=== PATIENT | female | born 1990 | race American Indian/Alaskan Native ===

== ENCOUNTER 2018-05-20 23:40 | Emergency (ER) | payer OTHER, SELFPAY ==
[2018-05-20 23:45] VITALS: BP 101/71; PULSE 72; RESP 18; TEMP 36.6; O2SAT 99; BMI 29.2
--- NOTE | 2018-05-20 23:46 | ED.GENADULT ---
HPI - General Adult General Chief complaint: Skin/Abscess/Foreign Body Stated complaint: numbness/tingling hands/feet on new antibiotics Time Seen by Provider: 05/20/18 23:46 Source: patient Mode of arrival: ambulatory Limitations: no limitations History of Present Illness HPI narrative: Patient is a 27-year-old female who had 4 teeth removed today under sedation. Was sent home with amoxicillin and oxycodone/acetaminophen and ibuprofen. She states that approximately 2 hr prior to arrival she was sitting on her couch when she noticed some tingling from her knees to her ankles circumferentially on bilateral legs and also tingling in her hands. She states that she has had panic attacks in the past but this does not feel like a prior panic attack. She states that she did breathing into a bag which did not seem to improve her symptoms. Her last dose of pain medication was approximately 5 hr prior to the onset of the symptoms. She has never taken amoxicillin before and she is concerned that this is a reaction to the amoxicillin. Related Data Home Medications Medication Instructions Recorded Confirmed amoxicillin 500 mg PO TID 05/21/18 05/21/18 oxycodone-acetaminophen [Percocet] 1 tab PO Q4-6H PRN 05/21/18 05/21/18 Allergies Allergy/AdvReac Type Severity Reaction Status Date / Time No Known Drug Allergies Allergy Verified 05/21/18 00:30 Review of Systems Constitutional Denies fever(s) Cardiovascular Denies chest pain and Denies dyspnea Respiratory Denies dyspnea Gastrointestinal Gastrointestinal: Denies abdominal pain, Denies nausea and Denies vomiting Musculoskeletal Reports tingling Integumentary/Breasts Denies lesions and Denies rash Neurologic Reports tingling Hematologic/Lymphatic Denies easy bleeding and Denies easy bruising [facility] Medical History Panic attack (Acute) Surgical History Status post delivery (06/10/11) Social History Smoking Status: Never smoker Exam Initial Vital Signs Initial Vital Signs: Vital Signs Temperature 98 F 05/20/18 23:45 Pulse Rate 72 05/20/18 23:45 Respiratory Rate 18 05/20/18 23:45 Blood Pressure 101/71 05/20/18 23:45 Pulse Oximetry 99 05/20/18 23:45 Const General: cooperative, healthy appearing, comfortable, well developed, well groomed and No acute distress Orientation: alert, awake and oriented x3 HENMT Head: normal to inspection and normocephalic Resp Effort & Inspection: normal respiratory effort Auscultation: clear to auscultation bilaterally Cardio Rate: regular rate Heart Sounds: no murmurs Skin Lesions: no lesions Rashes: no rashes Neuro General: alert and oriented x3 Cranial Nerves: CN's II-XI intact bilaterally Cognition: normal cognition Speech: speech normal Gait: normal gait Motor: muscle tone normal throughout Sensory Exam: no sensory deficits noted Extrem General: normal to inspection and capillary refill normal Psych Appearance: grossly normal and well kempt Course Vital Signs - 8 hr 05/20/18 23:45 Temperature 98 F Pulse Rate 72 Respiratory Rate 18 Blood Pressure 101/71 Pulse Oximetry 99 Medical Decision Making MDM Narrative Medical decision making narrative: Patient appears very well. Physical exam is not consistent with CVA/TIA. I doubt that this is an allergic reaction to any of the medicines that she is taking. I do suspect a anxiety component to this. I did discuss all this with the patient. Will hold on further workup for now. The computer system was down at the time of the patient's discharge. She was given verbal discharge instructions. She expressed understanding and agreement plan. Discharge Plan Departure Patient Disposition: Home Clinical Impression: Distal paresthesia Discharge Date/Time: 05/21/18 00:15 Interventions: ED Discharge Assessment Last Done: 05/21/18 00:34 Activity Restrictions/Additional Instructions: continue all of your medications as directed. Return to the emergency department for any new or worsening symptoms. Prescriptions: No Action oxycodone-acetaminophen [Percocet] 5-325 mg Tablet 1 tab PO Q4-6H PRN (Reason: Pain, Mild) RF: 0 amoxicillin 500 mg Capsule 500 mg PO TID RF: 0
--- NOTE | 2018-05-21 00:28 | PC.NURSE ---
She c/o tingling arms and legs,no rashes noted,lungs clear,no rash noted.good cms in arms and legs bilateral.
== END 2018-05-21 00:15 | disposition home or self-care (01) ==
PROVIDERS: Emergency Provider Emergency Medicine; Family Provider Physician Assistant; PCP Physician Assistant
DX: R20.2 Paresthesia of skin (principal)
CPT/HCPCS: 99282

== ENCOUNTER → 2019-07-02 15:12 | Outpatient (CLI) | payer OTHER, MEDICAID, SELFPAY ==
[2019-07-02 16:45] LABS: Follicle Stimulating Hormone 2.77 mIU/mL; Luteinizing Hormone 2.31 mIU/mL
[2019-07-02 16:48] LABS: Prolactin 16.8 ng/mL (3.0-18.6)
[2019-07-02 16:59] LABS: Thyroid Stimulating Hormone 0.77 uIU/mL (0.47-4.68)
[2019-07-07 13:59] LABS: Testosterone Total 28 ng/dL (2-45)
== END ==
PROVIDERS: PCP Physician Assistant
DX: N97.0 Female infertility associated with anovulation (principal)
CPT/HCPCS: 36415; 83001; 83002; 84146; 84402; 84403; 84443

== ENCOUNTER 2024-09-29 19:01 | Observation (INO) | payer OTHER, SELFPAY ==
[2024-09-29] VITALS (9 sets, daily range): BP systolic 102–127; BP diastolic 55–68; PULSE 63–84; RESP 16–21; TEMP 36.8; O2SAT 98–100; BMI 32.2
[2024-09-29 19:55] LABS: Bacteria Urine Occasional (0-1); Culture Indicated Urine Cult Not Indicated; RBC Urine None Seen (0-5/HPF); Squamous Epithelial Cell Urine None Seen (0-5/HPF); Urine Volume 10mL (spun); WBC Urine 0-1/HPF (0-5/HPF)
[2024-09-29 20:26] LABS: Add Manual Diff / Slide Review NO; Basophils Absolute Auto 100 /uL (0-100); Basophils Percent Auto 1.2 % (0-2); Eosinophils Absolute Auto 400 /uL (0-450); Eosinophils Percent Auto 3.5 % (2-4); Hematocrit 40.1 % (36-46); Hemoglobin 13.6 g/dL (12.0-16.0); Lymphocytes Absolute Auto 2800 /uL (1100-4500); Lymphocytes Percent Auto 24.2 % (25-40); Mean Corpuscular HGB Conc 33.8 % (30-36); Mean Corpuscular Hemoglobin 31.5 PG (26-34); Mean Corpuscular Volume 93.2 fL (80-100); Monocytes Absolute Auto 900 /uL (0-900); Monocytes Percent Auto 7.3 % (3-14); Neutrophils Absolute Auto 7400 /uL (1500-7000); Neutrophils Percent Auto 63.8 % (50-75); Platelet Count 440 X10^3/uL (150-400); Red Blood Cell Count 4.31 X10^6/uL (4.0-5.2); Red Cell Distribution Width 13.6 % (11.6-14.8); White Blood Cell Count 11.6 X10^3/uL (4.5-11.0)
[2024-09-29 20:52] LABS: Alanine Aminotransferase 36 IU/L (<35); Albumin 3.9 g/dL (3.5-5.0); Albumin Globulin Ratio 1.3 (1.0-2.8); Alkaline Phosphatase 92 U/L (38-126); Aspartate Aminotransferase 43 IU/L (14-36); BUN Creatinine Ratio 8.8 (6-22); Bilirubin Total 0.5 mg/dL (0.2-1.3); Blood Urea Nitrogen 6 mg/dL (7-17); Calcium 8.4 mg/dL (8.4-10.2); Carbon Dioxide 22 mmol/L (22-32); Chloride 108 mmol/L (98-107); Estimated Glomerular Filt Rate > 60 mL/min (>60); Globulin 3.1 g/dL (1.7-4.1); Glucose 102 mg/dL (70-100); HEMOLYSIS < 15 (0-50); Lipase 87 U/L (23-300); Potassium 3.8 mmol/L (3.4-5.1); Sodium 138 mmol/L (137-145)
[2024-09-29 21:08] LABS: HCG Quantitative /Beta subunit 331.95 mIU/mL
--- NOTE | 2024-09-29 21:09 | ED_ITS ---
HPI - General Chief complaint: Abdominal Pain Stated complaint: states bad uterine cramping Time Seen by Provider: 09/29/24 20:16 Source: patient, RN notes reviewed and old records reviewed Mode of arrival: Ambulatory Limitations: no limitations History of Present Illness HPI Narrative: 34-year-old female A1 complaint of lower abdominal pelvic cramping feels like her uterus starting earlier today had some spotting week ago Friday. She was Unsure of last menstrual cycle but states has had 1 in the last 2 months. States they are irregular. Has not had any additional vaginal bleeding. Denies fevers or chills. No chest pain or shortness of breath, no lightheadedness or passing out. Describes abdominal pelvic cramping that feels like her uterus. States normal bowel movements. Normal urination. Has had prior history of C- section x2. Patient states no daily medications. No other prior surgeries. No known drug allergies. No regular tobacco, alcohol or recreational drugs. Related Data Allergies Allergy/AdvReac Type Severity Reaction Status Date / Time No Known Drug Allergies Allergy Verified 07/02/19 14:47 Review of Systems Review of Systems ROS Unobtainable: All systems reviewed & are unremarkable except as noted in HPI and below Exam Narrative Exam Narrative: GENERAL: Alert and oriented x three, female in mild distress HEENT: Head normocephalic, atraumatic, EOMI, pupils reactive, face symmetric, moist mucous membranes NECK: Supple, full range of motion CARDIOVASCULAR: Regular rate and rhythm without murmurs, rubs or gallops. RESPIRATORY: Breath sounds equal bilaterally, no wheezes rales or rhonchi. ABDOMEN: Soft, positive suprapubic tenderness. Normoactive bowel sounds all 4 quadrants. No guarding or rebound, rigidity, no mass : No CVA tenderness EXTREMITIES: Normal range of motion, no clubbing or edema. Neurovascularly intact NEUROLOGICAL: Cranial nerves II through XII grossly intact. Moving all extremities SKIN: Warm, dry, no petechiae, no rashes or lesions. Initial Vital Signs Initial Vital Signs: Vital Signs Temperature 98.2 F 09/29/24 19:10 Pulse Rate 63 09/29/24 19:10 Respiratory Rate 18 09/29/24 19:10 Blood Pressure 127/64 09/29/24 19:10 Pulse Oximetry 98 09/29/24 19:10 Oxygen Delivery Method Room Air 09/29/24 19:10 Course Orders Ordered: ED Orders 09/29/24 19:20 Urine Microscopic Stat 09/29/24 20:12 ABO RH Type Stat Beta HCG, Quant [HCG Quantitative /Beta subunit] Stat Complete Blood Count AUTO DIFF Stat Comprehensive Metabolic Panel Stat Lipase Stat 09/29/24 21:29 US pelvic complete Stat 09/29/24 23:21 Type and Screen Stat Discontinued Medications Hydrocodone Bitart/Acetaminophen (Hydrocodone/Acet 5/325 Tablet) 1 tab PO NOW ONE Stop: 09/29/24 21:31 Last Admin: 09/29/24 21:37 Dose: 1 tab Documented By: Sodium Chloride (Normal Saline 0.9%) 1,000 mls @ 1,000 mls/hr IV BOLUS ONE Stop: 09/29/24 22:29 Last Infusion: 09/29/24 22:37 Dose: Infused Documented By: Admin: 09/29/24 21:45 Dose: 1,000 mls/hr Documented By: Ondansetron HCl (Ondansetron 4 Mg/2 Ml Inj) 4 mg IV NOW PRN PRN Reason: Nausea And Vomiting Ondansetron HCl (Ondansetron 4 Mg Odt) 4 mg PO NOW PRN PRN Reason: Nausea And Vomiting Vital Signs Vital signs: Vital Signs - 8 hr 09/29/24 19:10 09/29/24 20:30 09/29/24 21:00 Temperature 98.2 F Pulse Rate 63 78 76 Respiratory Rate 18 20 18 Blood Pressure 127/64 Pulse Oximetry 98 100 99 Oxygen Delivery Method Room Air 09/29/24 21:16 09/29/24 21:16 09/29/24 21:30 Temperature Pulse Rate 68 Respiratory Rate 20 Blood Pressure 106/57 L 113/59 L Pulse Oximetry 99 Oxygen Delivery Method 09/29/24 21:30 09/29/24 22:00 09/29/24 22:00 Temperature Pulse Rate 84 78 Respiratory Rate 18 16 Blood Pressure 116/68 Pulse Oximetry 100 100 Oxygen Delivery Method 09/29/24 22:30 09/29/24 22:30 09/29/24 23:00 Temperature Pulse Rate 68 Respiratory Rate 18 Blood Pressure 106/55 L 110/59 L Pulse Oximetry 100 Oxygen Delivery Method 09/29/24 23:00 Temperature Pulse Rate 68 Respiratory Rate 18 Blood Pressure Pulse Oximetry 99 Oxygen Delivery Method [facility]/Uterine Contractions Lab Data 09/29/24 20:12 09/29/24 20:12 Labs: Lab Results 09/29/24 09/29/24 Range/Units 19:20 20:12 WBC 11.6 H (4.5-11.0) X10^3/uL RBC 4.31 (4.0-5.2) X10^6/uL Hgb 13.6 (12.0-16.0) g/dL Hct 40.1 (36-46) % MCV 93.2 (80-100) fL MCH 31.5 (26-34) PG MCHC 33.8 (30-36) % RDW 13.6 (11.6-14.8) % Plt Count 440 H (150-400) X10^3/uL Neut % (Auto) 63.8 (50-75) % Lymph % (Auto) 24.2 L (25-40) % [place] % (Auto) 7.3 (3-14) % Eos % (Auto) 3.5 (2-4) % Baso % (Auto) 1.2 (0-2) % Neut # (Auto) 7400 H (0020-1836) /uL Lymph # (Auto) 2800 (1832-2538) /uL [place] # (Auto) 900 (0-900) /uL Eos # (Auto) 400 (0-450) /uL Baso # (Auto) 100 (0-100) /uL Sodium 138 (137-145) mmol/L Potassium 3.8 (3.4-5.1) mmol/L Chloride 108 H (98-107) mmol/L Carbon Dioxide 22 (22-32) mmol/L BUN 6 L (7-17) mg/dL Creatinine 0.68 (0.52-1.04) mg/dL Estimated GFR > 60 (>60) mL/min BUN/Creatinine Ratio 8.8 (6-22) Glucose 102 H (70-100) mg/dL Calcium 8.4 (8.4-10.2) mg/dL Total Bilirubin 0.5 (0.2-1.3) mg/dL AST 43 H (14-36) IU/L ALT 36 H (<35) IU/L Alkaline Phosphatase 92 (38-126) U/L Total Protein 7.0 (6.3-8.2) g/dL Albumin 3.9 (3.5-5.0) g/dL Globulin 3.1 (1.7-4.1) g/dL Albumin/Globulin Ratio 1.3 (1.0-2.8) Lipase 87 (23-300) U/L HCG, Quant 331.95 mIU/mL Urine RBC None seen (0-5/HPF) Urine WBC 0-1/hpf (0-5/HPF) Ur Squamous Epith Cells None seen (0-5/HPF) Urine Bacteria Occasional (0-1) (None) Ur Culture Indicated? Cult not indicated Vol Urine Centrifuged 10ml (spun) Blood Type O Positive Point of Care Testing Test Results Positive Urine Dip Bedside Urine Glucose Negative Bedside Urine Bilirubin - Negative Bedside Urine Ketone - Negative Urine Specific [place] 1.020 Bedside Urine Occult Blood + Bedside Urine pH 6 Bedside Urine Protein - Negative Bedside Urine Urobilinogen - Negative Bedside Urine Nitrite - Negative Bedside Urine Leukocytes - Negative Esterase MDM Narrative Medical decision making narrative: Labs show white count 11.6 hemoglobin of 13 platelets of 440. Chloride 108 sodium is 138 potassium 3.8 CO2 is 22 with a BUN 6 creatinine 0.68 glucose of 102 AST is 43 ALT is 36 LFTs are otherwise appropriate hCG quant is 331.95. Patient is A positive, documented is O-positive this evening in the EMR but labs called was inappropriately documented was rerun on a new tube of blood but are unable to change in the EMR tonight. Point of care urine . Point of care positive for blood negative for nitrates and leuks. No RBCs 1 white cell no squamous occasional bacteria. OB ultrasound, endometrium poorly visualized left adnexal non vesicular complex cystic structure visualized possible cyst however ectopic can not be excluded proximally 40 cc he voids cul-de-sac possibly hemorrhagic contents. Results called to myself by Radiology 232 consult paradichlorobenzene tender, Dr. Rojas concern for ectopic patient does have up 40 cc of hemorrhagic contents suspected blood she will be in to see the patient shortly. Updated patient of findings. Dr. Rojas saw patient in the department and go to the OR for ex-lap to r/o ectopic. Discharge Plan Departure Patient Disposition: Admitted as Observation Clinical Impression: Ectopic Admit Date/Time: 09/29/24 23:42 Admit Provider: Krystina Rojas
--- NOTE | 2024-09-29 21:29 | DI.US.S_ITS ---
PROCEDURE: US PELVIC COMPLETE INDICATIONS: POSITIVE PREG; UNSURE DATES; CRAMPING TECHNIQUE: Real-time scanning was performed of the pelvic organs, with image documentation. Additional endovaginal scanning was necessary due to incomplete visualization of the adnexal and endometrial structures by transabdominal scanning. COMPARISON: None. FINDINGS: Uterus: Uterus is anteverted and normal in size at 9.5 x 4.9 x 5.5 cm cm. The myometrium is homogeneous. The endometrium is poorly visualized and measures approximately 9.5 mm in thickness. No definite intrauterine gestation identified. Ovaries: The right ovary measures 1.2 x 1.0 x 0.9 cm, with a calculated ovarian volume of 0.6 cc. The left ovary measures 4.1 x 5.0 x 3.1 cm, with a calculated ovarian volume of 325 cc. There is a cystic structure in the left adnexal region measuring 2.3 x 2.2 x 1.9 cm. Color-flow imaging demonstrates no vascularity present. Other: Approximately 4 cc of fluid is seen within the posterior cul-de-sac. IMPRESSION: Endometrium is poorly visualized, however within this limitation no intrauterine gestation is identified. Left adnexal nonvascular complex cystic structure visualized, possible cyst however ectopic cannot be excluded. Recommend serial beta HCG and pelvic ultrasound. Approximately 40 cc of fluid within the cul-de-sac, possible hemorrhagic contents. Findings were discussed with ordering ED provider Dr. Sainz by Dr. Dooley at 11:06 p.m. On 09/29/2024 Approved by: Jovita Dooley M.D.,Ph.D. on 09/29/2024 at 23:11
[2024-09-29] MEDS: HYDROCODONE/ACET 5/325 TABLET 1 TAB PO (21:37)
[2024-09-29] MEDS: SODIUM CHLORIDE 0.9% 1,000 ML 1000 ML IV (21:45)
--- NOTE | 2024-09-29 23:31 | PC.NURSE ---
Type and screen drawn by KANE Sosa
[2024-09-30] VITALS (9 sets, daily range): BP systolic 85–107; BP diastolic 41–62; PULSE 59–90; RESP 10–20; TEMP 36.6–37.1; O2SAT 96–100
--- NOTE | 2024-09-30 | PATH_ITS ---
[facility] Accession Number: [id number] No. of containers..01 Tissue . 01 Material submitted: . fallopian tube - LEFT FALLOPIAN TUBE . 01 Diagnosis: LEFT FALLOPIAN TUBE, SALPINGECTOMY: Focally edematous and hemorrhagic fallopian tube with minute fragment of possible products of conception. Incidental benign adrenal rest. Negative for malignancy. PAIGE 10/04/2024 1158 Local . 01 Electronically signed: . Coco Moreno DO, Pathologist NPI- [id number] . 01 Gross description: . Received in formalin with two identifiers and left fallopian tube, is a fimbriated fallopian tube 5.8 cm in length and ranging from 0.5 to 0.9 cm in diameter. The serosa is violaceous and smooth with no defects identified. Sectioning reveals the lumen to be dilated up to 0.5 cm in greatest dimension and hemorrhagic near the fimbriated end while the remaining lumen is stellate and unremarkable. Senior Automation Engineer sections to include the entire bisected fimbriae and cross-sections to include entire dilated area are submitted in cassettes A1-A2. ([id number]) /PAIGE 10/01/2024 2302 Local . 01 Pathologist provided ICD-10: O00.90 . 01 CPT . 915810 Specimen Comment: A courtesy copy of this report has been sent to [facility] Pathology Performed at: [address] [address], [place], [place] [id number] MD Yosef Jarrell MD Phone: [phone]
--- NOTE | 2024-09-30 00:07 | PM.GYNHP.1 ---
History of Present Illness History of Present Illness Narrative: Julieta Ramos is a 34 year old female who presented to ED this evening with c/o sudden onset lower abdominal/pelvic pain that started at approximately 1600. Patient states that pain is a constant, dull ache with intermittent waves of sharp pain, notes increased pain with ambulation/while riding to hospital in the car or when shifting in the bed. She states her menstrual cycles have been irregular for many years, no current contraception, believes LMP was maybe 2-3wks ago and consisted of spotting. Was not aware she was until arrival at ED this evening, bHCG 331. A pelvic US was performed that resulted significant for enlarged CORAL with complex cyst with vascular flow as well as moderate volume layered fluid within CDS consistent with hemoperitoneum. OBGYN consulted due to concern for ruptured ectopic . CS x2, SAB x1 denies h/o GC/CT +tobacco (smokes 1-2 cigarettes per day) denies chronic medical conditions, daily medications [facility] Medical History (Updated 09/30/24 @ 00:18 by Krystina Rojas MD) Panic attack Surgical History Status post delivery (06/10/11) Social History Smoking Status: Former smoker Meds Home Medications and Allergies Allergies Allergy/AdvReac Type Severity Reaction Status Date / Time No Known Drug Allergies Allergy Verified 07/02/19 14:47 Review of Systems Review of Systems ROS: Yes All systems reviewed with the patient and are negative except as otherwise documented Exam Vital Signs (past 8 hours): - 09/29/24 19:10 09/29/24 20:30 09/29/24 21:00 Temperature 98.2 F Pulse Rate 63 78 76 Respiratory Rate 18 20 18 Blood Pressure 127/64 Pulse Oximetry 98 100 99 Oxygen Delivery Method Room Air 09/29/24 21:16 09/29/24 21:16 09/29/24 21:30 Temperature Pulse Rate 68 Respiratory Rate 20 Blood Pressure 106/57 L 113/59 L Pulse Oximetry 99 Oxygen Delivery Method 09/29/24 21:30 09/29/24 22:00 09/29/24 22:00 Temperature Pulse Rate 84 78 Respiratory Rate 18 16 Blood Pressure 116/68 Pulse Oximetry 100 100 Oxygen Delivery Method 09/29/24 22:30 09/29/24 22:30 09/29/24 23:00 Temperature Pulse Rate 68 Respiratory Rate 18 Blood Pressure 106/55 L 110/59 L Pulse Oximetry 100 Oxygen Delivery Method 09/29/24 23:00 09/29/24 23:30 09/29/24 23:30 Temperature Pulse Rate 68 75 Respiratory Rate 18 21 Blood Pressure 102/59 L Pulse Oximetry 99 99 Oxygen Delivery Method 09/30/24 00:00 09/30/24 00:00 Temperature Pulse Rate 77 Respiratory Rate 20 Blood Pressure 107/55 L Pulse Oximetry 98 Oxygen Delivery Method Oxygen Delivery Method Room Air Const General: cooperative, well developed, well groomed and other (appears uncomfortable, NAD) Nutritional Appearance: obese Orientation: alert, awake and oriented x3 Limitations: mental status not altered Resp Effort & Inspection: normal respiratory effort and able to speak in complete sentences Cardio Pulses: normal peripheral pulses GI Inspection: normal to inspection Palpation: soft and guarding (voluntary, +rebound ) Other: deferred, pt denies current vaginal bleeding Skin General: no rashes or lesions noted Neuro General: patient alert, patient awake and patient oriented x3 Extrem General: normal to inspection Psych Mental Status: mental status grossly normal Judgment: judgment good Objective Imaging Pelvic US: My impression: midline uterus grossly wnl, mild thickening of EMS without YS/GS/IUP enlarged complex cystic appearance of CORAL, moderate increase in vascularity suggestive of 'ring of fire' sign moderate volume layered free fluid within CDS consistent with hemoperitoneum Radiologist's impression: Uterus: Uterus is anteverted and normal in size at 9.5 x 4.9 x 5.5 cm cm. The myometrium is homogeneous. The endometrium is poorly visualized and measures approximately 9.5 mm in thickness. No definite intrauterine gestation identified. Ovaries: The right ovary measures 1.2 x 1.0 x 0.9 cm, with a calculated ovarian volume of 0.6 cc. The left ovary measures 4.1 x 5.0 x 3.1 cm, with a calculated ovarian volume of 325 cc. There is a cystic structure in the left adnexal region measuring 2.3 x 2.2 x 1.9 cm. Color-flow imaging demonstrates no vascularity present. Other: Approximately 4 cc of fluid is seen within the posterior cul-de-sac. IMPRESSION: Endometrium is poorly visualized, however within this limitation no intrauterine gestation is identified. Left adnexal nonvascular complex cystic structure visualized, possible cyst however ectopic cannot be excluded. Recommend serial beta HCG and pelvic ultrasound. Approximately 40 cc of fluid within the cul-de-sac, possible hemorrhagic contents. Labs 09/29/24 20:12 09/29/24 20:12 Labs: Laboratory Results - last 24 hr 09/29/24 09/29/24 19:20 20:12 WBC 11.6 H RBC 4.31 Hgb 13.6 Hct 40.1 MCV 93.2 MCH 31.5 MCHC 33.8 RDW 13.6 Plt Count 440 H Neut % (Auto) 63.8 Lymph % (Auto) 24.2 [address] % (Auto) 7.3 Eos % (Auto) 3.5 Baso % (Auto) 1.2 Neut # (Auto) 7400 H Lymph # (Auto) 2800 Lane # (Auto) 900 Eos # (Auto) 400 Baso # (Auto) 100 Sodium 138 Potassium 3.8 Chloride 108 H Carbon Dioxide 22 BUN 6 L Creatinine 0.68 Estimated GFR > 60 BUN/Creatinine Ratio 8.8 Glucose 102 H Calcium 8.4 Total Bilirubin 0.5 AST 43 H ALT 36 H Alkaline Phosphatase 92 Total Protein 7.0 Albumin 3.9 Globulin 3.1 Albumin/Globulin Ratio 1.3 Lipase 87 HCG, Quant 331.95 Urine RBC None seen Urine WBC 0-1/hpf Ur Squamous Epith Cells None seen Urine Bacteria Occasional (0-1) Ur Culture Indicated? Cult not indicated Vol Urine Centrifuged 10ml (spun) Blood Type O Positive Assessment & Plan Assessment and plan (1) Ectopic : Qualifiers: Location of ectopic : unspecified location Intrauterine status: without intrauterine Qualified Code(s): O00.90 - Unspecified ectopic without intrauterine Status: Acute Plan 34yo with +bHCG, acute abdomen and ultrasonographic findings for ruptured ectopic Acute surgical abdomen, suspected ruptured ectopic Patient counseled on lab and ultrasound findings, reviewed that while findings are not diagnostic they are very suggestive of ruptured ectopic . Given her clinical presentation including abdominal rebound tenderness patient and were counseled that it is my strong recommendation to proceed to OR tonight for diagnostic laparoscopy for purposes of direct visualization. We discussed that if a ruptured ectopic is identified there is a high likelihood that either salpingectomy versus salpingo-oophorectomy will be indicated. We additionally discussed that in rastafarian ectopic or other abnormal pathology was not identified at time of procedure that only an intra-abdominal survey would be performed. We also discussed consideration of overnight observation with serial abdominal exams as an alternative to proceeding immediately to the OR tonight. In a shared decision making model patient desires to proceed with surgery as recommended. ED provider informed of plan of care, OR team notified and en-route Patient is consented for diagnostic laparoscopy, removal of ectopic , possible salpingectomy, possible oophorectomy with laterality pending intraoperative findings (identified as OCRAL per US). Risks, benefits and alternatives to procedure were reviewed and patient affirms desire to proceed. anticipated postoperative course reviewed dispo: to OR, anticipate dc to home following recovery from anesthesia pending intraoperative findings/clinical course Time-Based Coding :: [TOTAL MINUTES] spent with patient and on the chart (including review of chart, obtaining history, exam, reviewing outside data, placing orders, documenting exam and treatment plan, and counseling patient) on [DATE].
[2024-09-30] MEDS: SCOPOLAMINE 1 PATCH TOP (00:48)
[2024-09-30] MEDS: LACTATED RINGERS 1,000 ML 42 ML IV (01:00)
[2024-09-30] MEDS: CEFAZOLIN 2 GM/100 ML PREMIX 100 ML IV (01:05)
--- NOTE | 2024-09-30 01:09 | SUR.OPER ---
Lithotomy on padded OR bed, head on pillow, arms secured on padded arm boards at <90 degrees abduction. Legs secured in padded yellow fins stirrups.
[2024-09-30] MEDS: ACETAMINOPHEN IV 1,000 MG/100 ML VIAL 400 MG IV (01:15)
[2024-09-30] MEDS: BUPIVACAINE 0.5% W/ EPI (PF) 30 ML VIAL 10 ML INJ (01:52)
[2024-09-30] MEDS: OXYCODONE IR 5 MG TABLET PO (02:14)
[2024-09-30] MEDS: ONDANSETRON 4 MG/2 ML INJ IV (02:15)
[2024-09-30] MEDS: OXYCODONE/APAP 5/325 PREPACK 1 BOTTLE MISC (02:16)
--- NOTE | 2024-09-30 02:18 | P.OP_ITS ---
Operative Date/Time/Diagnoses Date of procedure: 09/30/24 Time of procedure: 01:05 Pre-op diagnosis: ruptured ectopic Post-op diagnosis: same Procedure & Clinicians Procedure: diagnostic laparoscopy, L salpingectomy Same procedure as scheduled: Yes Indications: acute pelvic pain, abnormal US, +bHCG without IUP Surgeon: Krystina Rojas Click Yes if Unassisted: Yes Anesthesia Type: General Operative Notes Findings: severe adhesion of anterior uterine serosa and omentum to anterior abdominal wall with L lateral displacement of uterus, diffuse filmy adhesions of descending colon to adjacent side wall Grossly dilated L fallopian tube with ruptured ectopic within ampulla approx 60cc hemoperitoneum noted on entry normal appearing bilateral ovaries, R fallopian tube Closure Type: primary Specimen(s): other (L fallopian tube ) Estimated Blood Loss (mL): 10 Procedure in detail: Pt was taken to the operating room, transferred to OR table and anesthesia was induced with placement of ETT.? Pt had her legs placed in Sergio stirrups and an exam under anesthesia was performed. The patient was prepped and draped in a sterile fashion.? A time out was performed.? A frazier catheter was placed for urinary diversion. A sponge stick loaded with moistened sponge was placed in the vagina for atraumatic uterine manipulation.? A 5mm incision was made infraumbilically and abdominal entry was achieved under direct visualization using the 5mm VisaPort trocar.? Abdomen was insufflated to 15mmHg.? Two left lateral 5-mm ports were placed in a similar manner under direct visualization in addition to single R lateral port. Prior to incision the epithelium of all incisions was superficially infiltrated with 0.25% marcaine with epinephrine for local analgesia. With abdominal entry acheived a circumferential abdominal survey was completed with the findings as noted below. The left fallopian tube was grasped using the atraumatic grasper, elevated and using the PowerSeal the fallopian tube was dissected away from the mesosalpinx taking great care not to compromise blood flow to the adjacent ovary. This dissection was carried down to the level of the cornua where the fallopian tube was them amputated and placed with in the anterior cul-de-sac. The umbilical incision was then sharply extended using the #11 blade. The 5mm trocar was removed and the laparoscope wsa placed via the R lateral side port. The 12mm trocar was then placed via the infraumbilical incision. Via this larger trocar the EndoCatch bag was introduced and in tandem with the atraumatic grasper the fallopian tube with ectopic was placed within the bag u nder direct visualization. The bag was brought to the level of the incision and pneumoperitoneum was vented. Specimen was removed along with the 12mm trocar, visually inspected and noted to be intact; passed off the field for permanent study. Pneumoperitoneum was then re-established. The abdomen and pelvis were vigorously suction irrigated and all of the hemoperitoneum was removed. The dissected wound beds were inspected and noted to hemostatic. Lateral trocars were removed under direct visualization and the pneumoperitoneum was once more vented followed by removal of the R lateral trocar. The fascia of the infraumbilical incision was closed using 0-0 vicryl on a UR-6 needle. The skin of all incisions was reapproximated using 4-0 monocryl in a subcuticular fashion followed by application of dermabond. The sponge stick was removed from the vagina and the frazier catheter was discontinued. All counts correct x2. Patient was awoken from anesthesia, extubated and taken to PACU in stable condition without complication. Complications: none Post-operative Condition: stable Disposition: PACU Plan for aftercare: anticipate dc to home pending clinical course, message sent to office staff with request for 2wk postop f/u
[2024-09-30] MEDS: HYDROMORPHONE 1 MG INJ IV (02:21)
[2024-09-30] MEDS: METOCLOPRAMIDE 10 MG/2 ML INJ IV (02:24)
== END 2024-09-30 03:03 | disposition home or self-care (01) ==
LOC: ED 20:22 → AC 23:43
PROVIDERS: Admitting Provider Obstetrics & Gynecology; Emergency Provider Emergency Medicine; PCP Physician Assistant; Referring Provider Emergency Medicine; Visit Provider Obstetrics & Gynecology
PROC: 0WJJ0ZZ Inspection of Pelvic Cavity, Open Approach (ICD-10-PCS; CPT 49000; principal; 2024-09-30 01:00)
DX: O00.102 Left tubal pregnancy without intrauterine pregnancy (principal); O99.891 Other specified diseases and conditions complicating pregnancy; N73.6 Female pelvic peritoneal adhesions (postinfective); K66.1 Hemoperitoneum
CPT/HCPCS: 59151; 36415; 76830; 76856; 80053; 81003; 81015; 81025; 83690; 84702; 85025; 86900; 86901; 96361; 96374; 96375; 99284; G0378; J0134; J0690; J1100; J1171; J1885; J2250; J2405; J2704; J2765; J3010; J3490

== ENCOUNTER 2024-10-20 22:37 | Emergency (ER) | payer OTHER, SELFPAY ==
[2024-10-20 22:43] VITALS: BP 122/70; PULSE 74; RESP 18; TEMP 36.9; O2SAT 98; BMI 33.2
[2024-10-20] MEDS: ONDANSETRON 4 MG/2 ML INJ IV (23:01)
[2024-10-20 23:20] LABS: Add Manual Diff / Slide Review NO; Alanine Aminotransferase 32 IU/L (<35); Albumin 3.8 g/dL (3.5-5.0); Albumin Globulin Ratio 1.2 (1.0-2.8); Alkaline Phosphatase 94 U/L (38-126); Aspartate Aminotransferase 46 IU/L (14-36); BUN Creatinine Ratio 8.1 (6-22); Basophils Absolute Auto 100 /uL (0-100); Basophils Percent Auto 0.5 % (0-2); Bilirubin Total 0.7 mg/dL (0.2-1.3); Blood Urea Nitrogen 6 mg/dL (7-17); Calcium 8.4 mg/dL (8.4-10.2); Carbon Dioxide 20 mmol/L (22-32); Chloride 109 mmol/L (98-107); Eosinophils Absolute Auto 300 /uL (0-450); Eosinophils Percent Auto 2.5 % (2-4); Estimated Glomerular Filt Rate > 60 mL/min (>60); Globulin 3.1 g/dL (1.7-4.1); Glucose 124 mg/dL (70-100); HEMOLYSIS < 15 (0-50); Hematocrit 39.6 % (36-46); Hemoglobin 13.6 g/dL (12.0-16.0); Lipase 82 U/L (23-300); Lymphocytes Absolute Auto 1400 /uL (1100-4500); Lymphocytes Percent Auto 12.2 % (25-40); Mean Corpuscular HGB Conc 34.4 % (30-36); Mean Corpuscular Hemoglobin 31.3 PG (26-34); Mean Corpuscular Volume 91.1 fL (80-100); Monocytes Absolute Auto 700 /uL (0-900); Monocytes Percent Auto 6.5 % (3-14); Neutrophils Absolute Auto 9000 /uL (1500-7000); Neutrophils Percent Auto 78.3 % (50-75); Platelet Count 462 X10^3/uL (150-400); Potassium 3.8 mmol/L (3.4-5.1); Red Blood Cell Count 4.35 X10^6/uL (4.0-5.2); Red Cell Distribution Width 13.7 % (11.6-14.8); Sodium 138 mmol/L (137-145); Total Protein 6.9 g/dL (6.3-8.2); White Blood Cell Count 11.5 X10^3/uL (4.5-11.0)
[2024-10-21 01:46] VITALS: BP 118/79; PULSE 68; O2SAT 98
[2024-10-21 02:00] VITALS: BP 95/53; PULSE 60; RESP 18; O2SAT 98
--- NOTE | 2024-10-21 02:15 | ED.ABDPAIN ---
HPI - Abdominal Pain General Chief Complaint: Abdominal Pain Stated Complaint: abd pain Time Seen by Provider: 10/21/24 01:55 Source: patient Mode of arrival: Ambulatory History of Present Illness HPI narrative: 34-year-old female had ectopic 2 weeks ago status post left oophorectomy here by Dr. Pitts, seems recovered, woke up this morning with nausea and central abdominal discomfort, becoming more right-sided through the day by 8:00 p.m.. Increasing pain. No loose stools diarrhea. No fevers or chills. No painful or frequent urination. No flank area discomfort. No injury trauma new activities. Related Data Previous Rx's Medication Instructions Recorded ibuprofen 800 mg tablet 800 mg PO Q8H PRN pain #14 tabs 09/30/24 ondansetron 4 mg disintegrating 4 mg PO Q6H PRN nausea and 09/30/24 tablet vomiting #10 tabs oxycodone 5 mg capsule 5 mg PO Q6H PRN pain #7 caps 09/30/24 sennosides 8.6 mg tablet (Senna 8.6 mg PO BEDTIME #10 tabs 09/30/24 Lax) Allergies Allergy/AdvReac Type Severity Reaction Status Date / Time No Known Drug Allergies Allergy Verified 10/15/24 16:42 Patient History Medical History (Updated 10/21/24 @ 03:47 by Cam Maloney MD) Ectopic Panic attack Surgical History Status post delivery (06/10/11) Social History Smoking Status: Former smoker Smoking Status: Former smoker Exam Narrative Exam Narrative: GENERAL: Well-developed patient, in mild distress. HEAD: Atraumatic. Normocephalic. EYES: Pupils equal round and reactive. Extraocular motions intact. No scleral icterus. No injection or drainage. ENT: Nose without bleeding, purulent drainage. Throat without erythema, tonsillar hypertrophy or exudate. Airway patent. NECK: Trachea midline. Non tender CARDIOVASCULAR: Regular rate and rhythm without murmurs, gallops, or rubs. RESPIRATORY: Clear to auscultation. Breath sounds equal bilaterally. No wheezes, rales, or rhonchi. GASTROINTESTINAL: Recent surgical port scars from ectopic surgery, nondistended, some right lower quadrant tenderness, no guarding or rebound tenderness. EXTREMITIES: No edema or joint tenderness. BACK: Nontender without deformity or crepitance. No flank tenderness. NEURO: AOx3. SKIN: No rash or erythema of visible areas Initial Vital Signs Initial Vital Signs: Vital Signs Temperature 98.5 F 10/20/24 22:43 Pulse Rate 74 10/20/24 22:43 Respiratory Rate 18 10/20/24 22:43 Blood Pressure 122/70 10/20/24 22:43 Pulse Oximetry 98 10/20/24 22:43 Oxygen Delivery Method Room Air 10/20/24 22:43 Course Orders Ordered: Discontinued Medications Ketorolac Tromethamine (Ketorolac 30 Mg/Ml Vial) 15 mg IV NOW ONE Stop: 10/21/24 02:25 Last Admin: 10/21/24 02:36 Dose: 15 mg Documented By: ROBERTO Ondansetron HCl (Ondansetron 4 Mg/2 Ml Inj) 4 mg IV NOW PRN PRN Reason: Nausea And Vomiting Last Admin: 10/20/24 23:01 Dose: 4 mg Documented By: ROBERTO Ondansetron HCl (Ondansetron 4 Mg Odt) 4 mg PO NOW PRN PRN Reason: Nausea And Vomiting Vital Signs Vital signs: Vital Signs - 8 hr 10/20/24 22:43 10/21/24 01:46 10/21/24 01:46 Temperature 98.5 F Pulse Rate 74 68 Respiratory Rate 18 Blood Pressure 122/70 118/79 Pulse Oximetry 98 98 Oxygen Delivery Method Room Air 10/21/24 02:00 10/21/24 02:00 Temperature Pulse Rate 60 Respiratory Rate 18 Blood Pressure 95/53 L Pulse Oximetry 98 Oxygen Delivery Method MDM - Abdominal Pain Lab Data Attestation: I reviewed the patient's lab results. Lab results narrative: White blood cell count 01543, hemoglobin 13.6, platelets 462,000. Basic metabolic panel unremarkable. Liver functions and lipase normal. Lipase normal. Urine dip negative. Urine test negative. 10/20/24 22:58 10/20/24 22:58 Labs: Lab Results 10/20/24 Range/Units 22:58 WBC 11.5 H (4.5-11.0) X10^3/uL RBC 4.35 (4.0-5.2) X10^6/uL Hgb 13.6 (12.0-16.0) g/dL Hct 39.6 (36-46) % MCV 91.1 (80-100) fL MCH 31.3 (26-34) PG MCHC 34.4 (30-36) % RDW 13.7 (11.6-14.8) % Plt Count 462 H (150-400) X10^3/uL Neut % (Auto) 78.3 H (50-75) % Lymph % (Auto) 12.2 L (25-40) % [place] % (Auto) 6.5 (3-14) % Eos % (Auto) 2.5 (2-4) % Baso % (Auto) 0.5 (0-2) % Neut # (Auto) 9000 H (8535-0777) /uL Lymph # (Auto) 1400 (5269-3942) /uL [place] # (Auto) 700 (0-900) /uL Eos # (Auto) 300 (0-450) /uL Baso # (Auto) 100 (0-100) /uL Sodium 138 (137-145) mmol/L Potassium 3.8 (3.4-5.1) mmol/L Chloride 109 H (98-107) mmol/L Carbon Dioxide 20 L (22-32) mmol/L BUN 6 L (7-17) mg/dL Creatinine 0.74 (0.52-1.04) mg/dL Estimated GFR > 60 (>60) mL/min BUN/Creatinine Ratio 8.1 (6-22) Glucose 124 H (70-100) mg/dL Calcium 8.4 (8.4-10.2) mg/dL Total Bilirubin 0.7 (0.2-1.3) mg/dL AST 46 H (14-36) IU/L ALT 32 (<35) IU/L Alkaline Phosphatase 94 (38-126) U/L Total Protein 6.9 (6.3-8.2) g/dL Albumin 3.8 (3.5-5.0) g/dL Globulin 3.1 (1.7-4.1) g/dL Albumin/Globulin Ratio 1.2 (1.0-2.8) Lipase 82 (23-300) U/L Point of care testing: Point of Care Testing Test Results Negative Urine Dip Bedside Urine Glucose Negative Bedside Urine Bilirubin - Negative Bedside Urine Ketone - Negative Urine Specific Upperco 1.015 Bedside Urine Occult Blood - Negative Bedside Urine pH 6 Bedside Urine Protein - Negative Bedside Urine Urobilinogen - Negative Bedside Urine Nitrite - Negative Bedside Urine Leukocytes - Negative Esterase MDM Narrative Medical decision making narrative: 34-year-old female had ectopic and left oophorectomy surgery 2 weeks ago, recovered, now with nausea in central abdominal pain since early yesterday morning, right-sided in lower abdominal area discomfort since 8:00 p.m.. Afebrile, sirs screen negative. Some right lower quadrant tenderness on examination. Urine test negative. White blood cell count [address]. CT abdomen and pelvis imaging requested. Keep NPO. Patient would like pain medication, we will give IV Toradol. CT abdomen and pelvis with IV contrast. Impressions: ?No evidence of colitis diverticulitis bowel obstruction obstructive uropathy or acute appendicitis. Hepatic steatosis. Incidental findings done.? See tele radiology report More comfortable after toradol. Offered pelvic US, declined. She wanted to go home. Advised use of OTC analgesics as needed. Advised follow-up with her gynecologic post-op as planned. Return precautons discussed. DC home per patient preference. Discharge Plan Departure Patient Disposition: Home Clinical Impression: Abdominal pain Activity Restrictions/Additional Instructions: Ms Ramos, You had recent ectopic surgery about 2 weeks ago with removal of your left ovary by report, now with central abdominal discomfort turning more right-sided through the day today. Some tenderness right-sided mid lower quadrant. Screening labs negative test, urinalysis urine dip negative, slight elevation white blood cell count, otherwise labs unremarkable. CT abdomen and pelvis showed no acute inflammatory condition now, see radiology report. We did discuss ultrasound in the right adnexa/ovary, declined for now. Consider follow up with your embedded software test engineer giving you had recent surgery. It is theoretically possible that you had some postoperative pain medications that might be leading to some degree of constipation that could be symptomatic, though on CT scanning no colonic stool burden was really mentioned by the radiologist. No definite cause identified for your symptoms at this time. Take Tylenol and or Motrin as needed for pain control. Consider use of laxative [id number] such as MiraLax or magnesium citrate, if postop constipation from pain medication in his any component of your symptoms today. Consider reaching out to your embedded software test engineer who did your recent surgery, during office hours tomorrow later today. Return earlier to this/nearest emergency department for any change worsening symptoms or any concerns prior. Thank you for allowing our team to evaluate you today. Prescriptions: No Action oxycodone 5 mg capsule 5 mg PO Q6H PRN (Reason: pain) Qty: 7 0RF ibuprofen 800 mg tablet 800 mg PO Q8H PRN (Reason: pain) Qty: 14 0RF sennosides [Senna Lax] 8.6 mg tablet 8.6 mg PO BEDTIME Qty: 10 0RF ondansetron 4 mg tablet,disintegrating 4 mg PO Q6H PRN (Reason: nausea and vomiting) Qty: 10 0RF Referrals: Mar Chávez PA-C [Primary Care Provider] - Stand Alone Forms: Patient Portal/API/Survey
--- NOTE | 2024-10-21 02:20 | DI.CT.S_ITS ---
PROCEDURE: CT ABDOMEN PELVIS W CON INDICATIONS: RLQ pain, recent L ooph surgery ectopic TECHNIQUE: After the administration of intravenous contrast, axial sections acquired from the lung bases to the pubic symphysis. Coronal and sagittal reformats were performed. For radiation dose reduction, the following was used: automated exposure control, adjustment of mA and/or kV according to patient size. COMPARISON: None. FINDINGS: Image quality: Diagnostic. Lower Chest: No significant findings. ABDOMEN: Liver: Moderate hepatic steatosis by Hounsfield units criteria. Gallbladder: No radiopaque gallstones or wall thickening. Biliary ducts: No biliary dilation. Pancreas: No ductal dilation. Spleen: Size is within normal limits. Adrenal Glands: No adrenal nodules. Kidneys and Ureters: No hydronephrosis. No solid mass. No complex renal cystic lesion which requires follow up. Stomach and Bowel: Normal colonic caliber, without significant wall thickening. Normal appendix. Peritoneum: No abnormal intraperitoneal fluid. No free air. Ventral Wall: No significant ventral hernia. Abdominal Nodes: No retroperitoneal or mesenteric adenopathy by size criteria. Vessels: Aorta and inferior vena cava are normal in size. PELVIS: Pelvic Organs: Normal right ovary. Bladder: No bladder wall thickening, accounting for underdistention. Pelvic Nodes: No enlarged lymph nodes. Miscellaneous: No inguinal hernias are seen. Bones: No aggressive osseous abnormality. IMPRESSION: No findings to explain the patient's right lower quadrant pain. No nephrolithiasis. Normal gallbladder. Normal appendix. Normal right ovary. Dictated by: Leno Hansen M.D. on 10/21/2024 at 9:01 Approved by: Leno Hansen M.D. on 10/21/2024 at 9:08
[2024-10-21 02:30] VITALS: BP 90/53; PULSE 64; RESP 18; O2SAT 98
[2024-10-21] MEDS: KETOROLAC 30 MG/ML VIAL 15 MG IV (02:36)
--- NOTE | 2024-10-21 02:37 | PC.NURSE ---
Pt to imaging via wheel chair with imaging science professor
[2024-10-21 03:00] VITALS: BP 98/52; PULSE 61; RESP 18; O2SAT 98
[2024-10-21 03:30] VITALS: BP 93/54; PULSE 65; RESP 18; O2SAT 96
== END 2024-10-21 03:53 | disposition home or self-care (01) ==
PROVIDERS: Emergency Provider Emergency Medicine; PCP Physician Assistant
DX: R10.9 Unspecified abdominal pain (principal); Z90.721 Acquired absence of ovaries, unilateral; Z87.59 Personal history of other complications of pregnancy, childbirth and the puerperium
CPT/HCPCS: 36415; 74177; 80053; 81003; 81025; 83690; 85025; 96374; 96375; 99284; J1885; J2405; Q9967

== ENCOUNTER 2025-08-05 21:55 | Emergency (ER) | payer OTHER, SELFPAY ==
[2025-08-05 22:00] VITALS: BP 112/64; PULSE 95; RESP 16; TEMP 36.7; O2SAT 96; BMI 33.2
--- NOTE | 2025-08-05 22:19 | ED.ABDPAIN ---
HPI - Abdominal Pain <Hector Momin MD - Last Filed: 08/05/25 23:33> General Chief Complaint: Abdominal Pain Stated Complaint: Pain starting Rt side of belly under belly button Time Seen by Provider: 08/05/25 22:08 Source: patient Mode of arrival: Ambulatory History of Present Illness HPI narrative: 34-year-old female patient with a history of laparoscopy for right-sided ectopic which resulted in oophorectomy. She complains of right flank and abdominal pain over the last 2 hours radiating to the right lower quadrant. No fever, chills, nausea or diarrhea. She has had dysuria. Related Data Previous Rx's ?Medication ?Instructions ?Recorded ibuprofen 800 mg tablet 800 mg PO Q8H PRN pain #14 tabs 09/30/24 ondansetron 4 mg disintegrating 4 mg PO Q6H PRN nausea and 09/30/24 tablet vomiting #10 tabs oxycodone 5 mg capsule 5 mg PO Q6H PRN pain #7 caps 09/30/24 sennosides 8.6 mg tablet (Senna 8.6 mg PO BEDTIME #10 tabs 09/30/24 Lax) sulfamethoxazole 800 1 tab PO BID #20 tabs 08/06/25 mg-trimethoprim 160 mg tablet (Bactrim DS) Allergies Allergy/AdvReac Type Severity Reaction Status Date / Time No Known Drug Allergies Allergy Verified 08/05/25 21:59 Review of Systems <Hector Momin MD - Last Filed: 08/05/25 23:33> Review of Systems ROS Unobtainable: All systems reviewed & are unremarkable except as noted in HPI and below Gastrointestinal Gastrointestinal: Reports as per HPI Genitourinary Genitourinary: Reports as per HPI Patient History <Hector Momin MD - Last Filed: 08/05/25 23:33> Medical History (Updated 08/06/25 @ 01:56 by Laurita Sainz DO) Ectopic Panic attack Surgical History Status post delivery (06/10/11) Social History Smoking Status: Current every day smoker Smoking Status: Current every day smoker Exam <Hector Momin MD - Last Filed: 08/05/25 23:33> Narrative Exam Narrative: General: Alert and conversant. Yyip-un-wjhriaht distress. Appears well nourished and well hydrated Craniofacial: No evidence of trauma. Nontender and no swelling. Eyes: PERRLA EOMI conjunctiva clear HEENT: Tragus, pinnae nontender. Tympanic membranes normal appearance. Oropharynx clear with no swelling, exudate or asymmetry of the pharynx. Nares clear. No sinus tenderness Neck: No tenderness or adenopathy. No meningismus. No JVD Lungs: Clear to auscultation with good air movement. No wheezing, rales or rhonchi. No respiratory distress Cardiac: Regular rate and rhythm with no appreciable murmur or gallop Abdomen: Soft, . Mild suprapubic and right lower quadrant tenderness.with no distention or masses. Normal bowel sounds. No rebound or guarding . Right CVA tenderness. Musculoskeletal: Exam of the extremities, axial spine and ribcage reveals no deformity, bony tenderness or swelling. Range of motion intact Neuro: Alert and oriented. Cranial nerves, motor, sensory and cerebellar all grossly intact. No focal deficit Skin: Warm and normal color. No rashes Psychological: Normal affect and interaction. No evidence of delusion or psychosis. Normal mood. Initial Vital Signs Initial Vital Signs: Vital Signs Temperature 98.0 F 08/05/25 22:00 Pulse Rate 95 H 08/05/25 22:00 Respiratory Rate 16 08/05/25 22:00 Blood Pressure 112/64 08/05/25 22:00 Pulse Oximetry 96 08/05/25 22:00 Oxygen Delivery Method Room Air 08/05/25 22:00 <Laurita Sainz DO - Last Filed: 08/06/25 03:00> Initial Vital Signs Initial Vital Signs: Vital Signs Temperature 98.0 F 08/05/25 22:00 Pulse Rate 95 H 08/05/25 22:00 Respiratory Rate 16 08/05/25 22:00 Blood Pressure 112/64 08/05/25 22:00 Pulse Oximetry 96 08/05/25 22:00 Oxygen Delivery Method Room Air 08/05/25 22:00 Course <Hector Momin MD - Last Filed: 08/05/25 23:33> Orders Ordered: ED Orders 08/05/25 22:05 Urine Microscopic Stat 08/05/25 22:30 CBC Auto Diff [Complete Blood Count AUTO DIFF] Stat CMP [Comprehensive Metabolic Panel] Stat Lipase Stat 08/06/25 00:16 CT abdomen pelvis w con Stat Discontinued Medications Hydrocodone Bitart/Acetaminophen (Hydrocodone/Acet 5/325 Prepack) 1 bottle MISC DIRECTED ONE Stop: 08/06/25 01:57 Last Admin: 08/06/25 02:05 Dose: 1 bottle Sodium Chloride (Normal Saline 0.9%) 1,000 mls @ 1,000 mls/hr IV BOLUS ONE Stop: 08/05/25 23:17 Last Infusion: 08/05/25 23:35 Dose: Infused Documented By: Admin: 08/05/25 22:35 Dose: 1,000 mls/hr Documented By: MICHAEL Ketorolac Tromethamine (Ketorolac 30 Mg/Ml Vial) 30 mg IV NOW ONE Stop: 08/05/25 22:19 Last Admin: 08/05/25 22:36 Dose: 30 mg Documented By: MICHAEL Morphine Sulfate (Morphine 4 Mg/Ml Inj) 4 mg IV NOW ONE Stop: 08/05/25 22:19 Last Admin: 08/05/25 22:36 Dose: 4 mg Documented By: MICHAEL Ondansetron HCl (Ondansetron 4 Mg/2 Ml Inj) 4 mg IV NOW ONE Stop: 08/05/25 22:19 Last Admin: 08/06/25 01:15 Dose: 4 mg Documented By: MICHAEL Ondansetron HCl (Ondansetron 4 Mg Odt Prepack) 1 bottle MISC DIRECTED ONE Stop: 08/06/25 01:57 Last Admin: 08/06/25 02:04 Dose: 1 bottle Trimethoprim/Sulfamethoxazole (Trimeth/Sulfa 160/800 (Ds) Tablet) 1 tab PO NOW ONE Stop: 08/06/25 01:57 Last Admin: 08/06/25 02:05 Dose: 1 tab Vital Signs Vital signs: Vital Signs - 8 hr 08/05/25 22:00 08/05/25 22:48 08/05/25 22:48 Temperature 98.0 F Pulse Rate 95 H 87 Respiratory Rate 16 Blood Pressure 112/64 122/79 Pulse Oximetry 96 97 Oxygen Delivery Method Room Air 08/05/25 23:00 08/05/25 23:00 08/05/25 23:30 Temperature Pulse Rate 81 77 Respiratory Rate Blood Pressure 111/67 Pulse Oximetry 96 96 Oxygen Delivery Method 08/05/25 23:30 08/06/25 00:00 08/06/25 00:00 Temperature Pulse Rate 71 Respiratory Rate Blood Pressure 102/58 L 102/58 L Pulse Oximetry 96 Oxygen Delivery Method 08/06/25 00:30 08/06/25 00:30 08/06/25 01:07 Temperature Pulse Rate 75 78 Respiratory Rate Blood Pressure 107/68 Pulse Oximetry 98 98 Oxygen Delivery Method Room Air 08/06/25 01:08 08/06/25 01:08 08/06/25 01:30 Temperature Pulse Rate 74 65 Respiratory Rate Blood Pressure 114/64 Pulse Oximetry 98 96 Oxygen Delivery Method 08/06/25 02:00 08/06/25 02:00 Temperature Pulse Rate 64 Respiratory Rate Blood Pressure 98/56 L Pulse Oximetry 96 Oxygen Delivery Method Room Air <Laurita Sainz DO - Last Filed: 08/06/25 03:00> Orders Ordered: ED Orders 08/05/25 22:05 Urine Microscopic Stat 08/05/25 22:30 CBC Auto Diff [Complete Blood Count AUTO DIFF] Stat CMP [Comprehensive Metabolic Panel] Stat Lipase Stat 08/06/25 00:16 CT abdomen pelvis w con Stat Discontinued Medications Hydrocodone Bitart/Acetaminophen (Hydrocodone/Acet 5/325 Prepack) 1 bottle MISC DIRECTED ONE Stop: 08/06/25 01:57 Last Admin: 08/06/25 02:05 Dose: 1 bottle Sodium Chloride (Normal Saline 0.9%) 1,000 mls @ 1,000 mls/hr IV BOLUS ONE Stop: 08/05/25 23:17 Last Infusion: 08/05/25 23:35 Dose: Infused Documented By: Admin: 08/05/25 22:35 Dose: 1,000 mls/hr Documented By: MICHAEL Ketorolac Tromethamine (Ketorolac 30 Mg/Ml Vial) 30 mg IV NOW ONE Stop: 08/05/25 22:19 Last Admin: 08/05/25 22:36 Dose: 30 mg Documented By: MICHAEL Morphine Sulfate (Morphine 4 Mg/Ml Inj) 4 mg IV NOW ONE Stop: 08/05/25 22:19 Last Admin: 08/05/25 22:36 Dose: 4 mg Documented By: MICHAEL Ondansetron HCl (Ondansetron 4 Mg/2 Ml Inj) 4 mg IV NOW ONE Stop: 08/05/25 22:19 Last Admin: 08/06/25 01:15 Dose: 4 mg Documented By: MICHAEL Ondansetron HCl (Ondansetron 4 Mg Odt Prepack) 1 bottle MISC DIRECTED ONE Stop: 08/06/25 01:57 Last Admin: 08/06/25 02:04 Dose: 1 bottle Trimethoprim/Sulfamethoxazole (Trimeth/Sulfa 160/800 (Ds) Tablet) 1 tab PO NOW ONE Stop: 08/06/25 01:57 Last Admin: 08/06/25 02:05 Dose: 1 tab Vital Signs Vital signs: Vital Signs - 8 hr 08/05/25 22:00 08/05/25 22:48 08/05/25 22:48 Temperature 98.0 F Pulse Rate 95 H 87 Respiratory Rate 16 Blood Pressure 112/64 122/79 Pulse Oximetry 96 97 Oxygen Delivery Method Room Air 08/05/25 23:00 08/05/25 23:00 08/05/25 23:30 Temperature Pulse Rate 81 77 Respiratory Rate Blood Pressure 111/67 Pulse Oximetry 96 96 Oxygen Delivery Method 08/05/25 23:30 08/06/25 00:00 08/06/25 00:00 Temperature Pulse Rate 71 Respiratory Rate Blood Pressure 102/58 L 102/58 L Pulse Oximetry 96 Oxygen Delivery Method 08/06/25 00:30 08/06/25 00:30 08/06/25 01:07 Temperature Pulse Rate 75 78 Respiratory Rate Blood Pressure 107/68 Pulse Oximetry 98 98 Oxygen Delivery Method Room Air 08/06/25 01:08 08/06/25 01:08 08/06/25 01:30 Temperature Pulse Rate 74 65 Respiratory Rate Blood Pressure 114/64 Pulse Oximetry 98 96 Oxygen Delivery Method 08/06/25 02:00 08/06/25 02:00 Temperature Pulse Rate 64 Respiratory Rate Blood Pressure 98/56 L Pulse Oximetry 96 Oxygen Delivery Method Room Air MDM - Abdominal Pain <Hector Momin MD - Last Filed: 08/05/25 23:33> Lab Data Attestation: I reviewed the patient's lab results. Lab results narrative: WBCs slightly elevated left 0.9. CBC otherwise unremarkable. CMP unremarkable. Urine micro pending 08/05/25 22:30 08/05/25 22:30 Labs: Lab Results 08/05/25 08/05/25 Range/Units 22: 22:30 WBC 11.9 H (4.5-11.0) X10^3/uL RBC 4.13 (4.0-5.2) X10^6/uL Hgb 13.1 (12.0-16.0) g/dL Hct 37.0 (36-46) % MCV 89.7 (80-100) fL MCH 31.6 (26-34) PG MCHC 35.3 (30-36) % RDW 14.0 (11.6-14.8) % Plt Count 419 H (150-400) X10^3/uL Neut % (Auto) 71.4 (50-75) % Lymph % (Auto) 18.4 L (25-40) % [place] % (Auto) 5.5 (3-14) % Eos % (Auto) 1.8 L (2-4) % Baso % (Auto) 2.9 H (0-2) % Neut # (Auto) 8500 H (1869-2823) /uL Lymph # (Auto) 2200 (0258-2156) /uL [place] # (Auto) 700 (0-900) /uL Eos # (Auto) 200 (0-450) /uL Baso # (Auto) 300 H (0-100) /uL Sodium 138 (137-145) mmol/L Potassium 3.6 (3.4-5.1) mmol/L Chloride 109 H (98-107) mmol/L Carbon Dioxide 23 (22-32) mmol/L BUN 9 (7-17) mg/dL Creatinine 0.63 (0.52-1.04) mg/dL Estimated GFR > 60 (>60) mL/min BUN/Creatinine Ratio 14.3 (6-22) Glucose 115 H (70-99) mg/dL Calcium 8.5 (8.4-10.2) mg/dL Total Bilirubin 0.3 (0.2-1.3) mg/dL AST 30 (14-36) IU/L ALT 23 (<35) IU/L Alkaline Phosphatase 82 (38-126) U/L Total Protein 6.7 (6.3-8.2) g/dL Albumin 3.6 (3.5-5.0) g/dL Globulin 3.1 (1.7-4.1) g/dL Albumin/Globulin Ratio 1.2 (1.0-2.8) Lipase 74 (23-300) U/L Urine RBC 0-1/hpf (0-5/HPF) Urine WBC 0-1/hpf (0-5/HPF) Ur Squamous Epith Cells 1-5 /hpf (0-5/HPF) Urine Bacteria Few (2-10) H (None) Ur Culture Indicated? Cult not indicated Vol Urine Centrifuged 10ml (spun) Point of care testing: Point of Care Testing Test Results Negative Urine Dip Bedside Urine Glucose Negative Bedside Urine Bilirubin - Negative Bedside Urine Ketone - Negative Urine Specific [place] 1.015 Bedside Urine Occult Blood - Negative Bedside Urine pH 6.0 Bedside Urine Protein - Negative Bedside Urine Urobilinogen - Negative Bedside Urine Nitrite - Negative Bedside Urine Leukocytes - Negative Esterase MDM Narrative Medical decision making narrative: patient has right flank pain and tenderness to percussion with radiation to the right lower quadrant. Urine dip is negative but we are awaiting urine micro. 23:25 Patient care signed out to Dr. Sainz at the change of shift with urinalysis and further assessment pending including possible imaging. <Laurita Sainz, DO - Last Filed: 08/06/25 03:00> Lab Data Labs: Lab Results 08/05/25 08/05/25 Range/Units 22:05 22:30 WBC 11.9 H (4.5-11.0) X10^3/uL RBC 4.13 (4.0-5.2) X10^6/uL Hgb 13.1 (12.0-16.0) g/dL Hct 37.0 (36-46) % MCV 89.7 (80-100) fL MCH 31.6 (26-34) PG MCHC 35.3 (30-36) % RDW 14.0 (11.6-14.8) % Plt Count 419 H (150-400) X10^3/uL Neut % (Auto) 71.4 (50-75) % Lymph % (Auto) 18.4 L (25-40) % [place] % (Auto) 5.5 (3-14) % Eos % (Auto) 1.8 L (2-4) % Baso % (Auto) 2.9 H (0-2) % Neut # (Auto) 8500 H (3815-8974) /uL Lymph # (Auto) 2200 (1049-3020) /uL [place] # (Auto) 700 (0-900) /uL Eos # (Auto) 200 (0-450) /uL Baso # (Auto) 300 H (0-100) /uL Sodium 138 (137-145) mmol/L Potassium 3.6 (3.4-5.1) mmol/L Chloride 109 H (98-107) mmol/L Carbon Dioxide 23 (22-32) mmol/L BUN 9 (7-17) mg/dL Creatinine 0.63 (0.52-1.04) mg/dL Estimated GFR > 60 (>60) mL/min BUN/Creatinine Ratio 14.3 (6-22) Glucose 115 H (70-99) mg/dL Calcium 8.5 (8.4-10.2) mg/dL Total Bilirubin 0.3 (0.2-1.3) mg/dL AST 30 (14-36) IU/L ALT 23 (<35) IU/L Alkaline Phosphatase 82 (38-126) U/L Total Protein 6.7 (6.3-8.2) g/dL Albumin 3.6 (3.5-5.0) g/dL Globulin 3.1 (1.7-4.1) g/dL Albumin/Globulin Ratio 1.2 (1.0-2.8) Lipase 74 (23-300) U/L Urine RBC 0-1/hpf (0-5/HPF) Urine WBC 0-1/hpf (0-5/HPF) Ur Squamous Epith Cells 1-5 /hpf (0-5/HPF) Urine Bacteria Few (2-10) H (None) Ur Culture Indicated? Cult not indicated Vol Urine Centrifuged 10ml (spun) Point of care testing: Point of Care Testing Test Results Negative Urine Dip Bedside Urine Glucose Negative Bedside Urine Bilirubin - Negative Bedside Urine Ketone - Negative Urine Specific [place] 1.015 Bedside Urine Occult Blood - Negative Bedside Urine pH 6.0 Bedside Urine Protein - Negative Bedside Urine Urobilinogen - Negative Bedside Urine Nitrite - Negative Bedside Urine Leukocytes - Negative Esterase MDM Narrative Medical decision making narrative: patient has right flank pain and tenderness to percussion with radiation to the right lower quadrant. Urine dip is negative but we are awaiting urine micro. 23:25 Patient care signed out to Dr. Sainz at the change of shift with urinalysis and further assessment pending including possible imaging. 08/06/25 Dr. Sainz: Patient signed out to myself. Patient is seen and evaluated by myself. 34-year-old female with history of right lower quadrant pain radiating to the right flank for 2 hours states feels similar to an ectopic from prior ectopic would had ovary surgery with a oophorectomy on that side Labs show white count 11.9 consistent with priors in September and October 2024, platelets are 419 was also elevated at that time, hemoglobin is 13.1. Patient has a predominance of basophils. Chemistries shows chloride of 109 otherwise normal electrolytes BUN creatinine glucose of 115 LFTs are normal lipase is normal. Patient is urine micro shows 1 red cell 1 white cell 1-5 squamous few bacteria. Point of care urine was negative for nitrates leuks or blood. Urine was negative. CT abdomen pelvis 70 any acute abnormality no evidence of obstructive uropathy, normal appendix. Diffuse hypotension liver parenchymal relative spleen compatible with hepatic steatosis. Stable appearance of cortical scarring left kidney. Duplicated left upper renal collecting system. She received Toradol and morphine, fluids and oral antibiotics. On exam patient has tender somewhat generalized but majority is in the right lower quadrant greatest. Shows some very mild flank pain but it is fairly minimal. Heart and lungs are clear. No rebound, guarding, no masses or hernia appreciated. Discussed with the patient she is agreeable for CT imaging to evaluate for possible appendicitis, pyelonephritis, kidney stone, colitis versus other. CT imaging does not show any acute change patient does have a few bacteria with a little bit of right lower quadrant and flank pain we will go ahead and start oral antibiotic. Discussed with the patient she is feeling improved on rechecked. We will discharge home on oral antibiotics, give a prepack of antinausea and pain medication as well. Discussed return precautions all questions answered. Discharge Plan Departure Patient Disposition: Home Clinical Impression: Pyelonephritis Instructions: DI for Kidney Infection Activity Restrictions/Additional Instructions: Your imaging today showed a incidentally a duplicated left upper renal collecting system and some hepatic steatosis but no other major changes. Your urine did show small amount of bacteria would start you on an oral antibiotic for potential infection. Take oral antibiotics until completed. Prescription sent to [facility] in [place]. You can take antinausea medication 1 tablet every 6 hours as needed. You can take acetaminophen up to a 1000 mg every 6 hours as needed for pain and/or ibuprofen up to 600 mg every 6 hours as needed for pain. If inadequate you can take [place] 1-2 tablets every 6 hours as needed for pain instead of acetaminophen. Please return if you develop fevers, worsening abdominal back or flank pain, persistent vomiting, any lightheadedness or passing out, black or bloody stools or other new or concerning changes. Prescriptions: New sulfamethoxazole-trimethoprim [Bactrim DS] 800-160 mg tablet 1 tab PO BID Qty: 20 0RF No Action oxycodone 5 mg capsule 5 mg PO Q6H PRN (Reason: pain) Qty: 7 0RF ibuprofen 800 mg tablet 800 mg PO Q8H PRN (Reason: pain) Qty: 14 0RF sennosides [Senna Lax] 8.6 mg tablet 8.6 mg PO BEDTIME Qty: 10 0RF ondansetron 4 mg tablet,disintegrating 4 mg PO Q6H PRN (Reason: nausea and vomiting) Qty: 10 0RF Referrals: Mar Chávez PA-C [Primary Care Provider, Medical] Stand Alone Forms: Patient Portal/API
[2025-08-05] MEDS: SODIUM CHLORIDE 0.9% 1,000 ML 1000 ML IV (22:35)
[2025-08-05] MEDS: KETOROLAC 30 MG/ML VIAL IV (22:36)
[2025-08-05] MEDS: MORPHINE 4 MG/ML INJ IV (22:36)
[2025-08-05 22:39] LABS: Add Manual Diff / Slide Review NO; Hematocrit 37.0 % (36-46); Hemoglobin 13.1 g/dL (12.0-16.0); Lymphocytes Absolute Auto 2200 /uL (1100-4500); Mean Corpuscular HGB Conc 35.3 % (30-36); Mean Corpuscular Hemoglobin 31.6 PG (26-34); Mean Corpuscular Volume 89.7 fL (80-100); Platelet Count 419 X10^3/uL (150-400)
[2025-08-05 22:48] VITALS: BP 122/79; PULSE 87; O2SAT 97
[2025-08-05 22:50] LABS: Alanine Aminotransferase 23 IU/L (<35); Albumin 3.6 g/dL (3.5-5.0); Albumin Globulin Ratio 1.2 (1.0-2.8); Alkaline Phosphatase 82 U/L (38-126); Blood Urea Nitrogen 9 mg/dL (7-17); Calcium 8.5 mg/dL (8.4-10.2); Carbon Dioxide 23 mmol/L (22-32); Chloride 109 mmol/L (98-107); Estimated Glomerular Filt Rate > 60 mL/min (>60); Globulin 3.1 g/dL (1.7-4.1); Glucose 115 mg/dL (70-99); HEMOLYSIS < 15 (0-50); Lipase 74 U/L (23-300); Potassium 3.6 mmol/L (3.4-5.1); Sodium 138 mmol/L (137-145); Total Protein 6.7 g/dL (6.3-8.2)
[2025-08-05 23:00] VITALS: BP 111/67; PULSE 81; O2SAT 96
[2025-08-05 23:30] VITALS: BP 102/58; PULSE 77; O2SAT 96
[2025-08-05 23:34] LABS: Culture Indicated Urine Cult Not Indicated
[2025-08-06] VITALS: BP 102/58; PULSE 71; O2SAT 96
--- NOTE | 2025-08-06 00:16 | DI.CT.S_ITS ---
PROCEDURE: CT ABDOMEN PELVIS W CON INDICATIONS: RLQ pain, some R flank, most tender RLQ TECHNIQUE: After the administration of intravenous contrast, axial sections acquired from the lung bases to the pubic symphysis. Coronal and sagittal reformats were performed. For radiation dose reduction, the following was used: automated exposure control, adjustment of mA and/or kV according to patient size. COMPARISON: [facility], CT, CT ABDOMEN PELVIS W CON, 10/21/2024, 2:31. FINDINGS: Image quality: Diagnostic. Lower Chest: Bibasilar atelectasis. Very small hiatal hernia. ABDOMEN: Liver: No solid mass. There is diffuse hypoattenuation of the liver parenchyma relative to the spleen compatible with hepatic steatosis. Gallbladder: No radiopaque gallstones or wall thickening. Biliary ducts: No biliary dilation. Pancreas: No ductal dilation. Spleen: Size is within normal limits. Adrenal Glands: No adrenal nodules. Kidneys and Ureters: No hydronephrosis. No solid mass. No complex renal cystic lesion which requires follow up. Stable appearance of cortical scarring of the left kidney. Duplicated left upper renal collecting system. Stomach and Bowel: Normal colonic caliber, without significant wall thickening. No evidence for small bowel obstruction or associated inflammatory changes. Normal appendix. Peritoneum: No abnormal intraperitoneal fluid. No free air. Ventral Wall: No significant ventral hernia. Abdominal Nodes: No retroperitoneal or mesenteric adenopathy by size criteria. Vessels: Aorta and inferior vena cava are normal in size. PELVIS: Pelvic Organs: Reproductive organs are unremarkable as imaged. Bladder: Urinary bladder thickness appears normal for degree of distention. No perivesicular inflammatory stranding. Pelvic Nodes: No enlarged lymph nodes. Miscellaneous: No inguinal hernias are seen. Bones: No aggressive osseous abnormality. Visualized osseous structures appear intact without acute fracture or focal destructive lesion. No acute compression fractures of the imaged spine. IMPRESSION: Stable CT evaluation of the abdomen and pelvis without acute abnormalities to explain patient's symptoms. No evidence for obstructive uropathy. Normal appendix. Dictated by: Sergio Bean M.D. on 08/06/2025 at 1:40 Approved by: Sergio Bean M.D. on 08/06/2025 at 1:44
[2025-08-06 00:30] VITALS: BP 107/68; PULSE 75; O2SAT 98
[2025-08-06 01:07] VITALS: PULSE 78; O2SAT 98
[2025-08-06 01:08] VITALS: BP 114/64; PULSE 74; O2SAT 98
[2025-08-06] MEDS: ONDANSETRON 4 MG/2 ML INJ IV (01:15)
[2025-08-06 01:30] VITALS: PULSE 65; O2SAT 96
[2025-08-06 02:00] VITALS: BP 98/56; PULSE 64; O2SAT 96
[2025-08-06] MEDS: ONDANSETRON 4 MG ODT PREPACK 1 BOTTLE MISC (02:04)
[2025-08-06] MEDS: TRIMETH/SULFA 160/800 (DS) TABLET 1 TAB PO (02:05)
== END 2025-08-06 02:13 | disposition home or self-care (01) ==
PROVIDERS: Emergency Medicine; Emergency Provider Emergency Medicine; PCP Physician Assistant
DX: N12 Tubulo-interstitial nephritis, not specified as acute or chronic (principal)
CPT/HCPCS: 36415; 74177; 80053; 81003; 81015; 81025; 83690; 85025; 96374; 96375; 99284; J1885; J2272; J2405; J7030; Q9967

== ENCOUNTER 2025-08-11 11:29 | Emergency (ER) | payer OTHER, SELFPAY ==
[2025-08-11 11:59] VITALS: BP 131/83; PULSE 91; RESP 18; TEMP 36.7; O2SAT 97; BMI 33.2
[2025-08-11] MEDS: ONDANSETRON 4 MG/2 ML INJ IV ×2 (12:09→18:29)
[2025-08-11 13:00] LABS: Culture Indicated Urine Cult Not Indicated
--- NOTE | 2025-08-11 13:18 | DI.US.S_ITS ---
PROCEDURE: US PELVIC COMPLETE INDICATIONS: R flank back pain TECHNIQUE: Real-time scanning was performed of the pelvic organs, with image documentation. Additional endovaginal scanning was necessary due to incomplete visualization of the adnexal and endometrial structures by transabdominal scanning. Color flow and spectral Doppler evaluation of the ovaries was performed in the setting of pelvic pain. COMPARISON: [facility], CT, CT ABDOMEN PELVIS W CON, 08/06/2025, 0:48. [facility], US, US PELVIC COMPLETE, 09/29/2024, 21:55. FINDINGS: Uterus: Uterus is anteverted and normal in size at 6.4 x 5.5 x 3.5 cm. The myometrium is homogeneous. The endometrium measures 8.2 mm combined thickness. Ovaries: The right ovary measures 1.7 x 3.7 x 2.1 cm, with a calculated ovarian volume of 6.9 cc. The left ovary measures 3.2 x 2.4 x 1.4 cm, with a calculated ovarian volume of 5.4 cc. Normal arterial and venous Doppler flow is demonstrated to each ovary. A hyperechoic structure with peripheral vascularity is seen in the right ovary measuring 1.6 x 1.7 x 1.1 cm. Other: No pathologic free abdominal or pelvic fluid. IMPRESSION: 1. No sonographic signs of ovarian torsion. 2. Heterogeneous mildly hyperechoic 1.7 cm lesion in the right ovary with peripheral vascularity is nonspecific, possibly representing corpus luteal cyst although ovarian ectopic is not entirely excluded in the setting of unknown status. No intrauterine . Recommend correlation with clinical findings and beta HCG measurements. Follow-up ultrasound could be performed if indicated clinically. Approved by: John Navarrete M.D. on 08/11/2025 at 15:24
--- NOTE | 2025-08-11 13:18 | DI.US.S_ITS ---
PROCEDURE: US ABDOMEN COMPLETE INDICATIONS: R flank back pain TECHNIQUE: Real-time scanning was performed of the abdominal and retroperitoneal organs, with image documentation. COMPARISON: [facility], CT, CT ABDOMEN PELVIS W CON, 08/06/2025, 0:48. FINDINGS: Liver: Liver is normal in size. Increased liver parenchymal echotexture is seen. No discrete hepatic lesion. Gallbladder: 1.2 x 0.9 cm mobile stone is seen in dependent portion of gallbladder lumen. No gallbladder wall thickening or pericholecystic fluid. No sonographic Ro sign. Biliary ducts: Intrahepatic bile ducts are non-dilated. No gross extrahepatic biliary ductal dilatation. Extrahepatic biliary ducts are obscured by overlying bowel gas. Pancreas: Not well seen due to overlying bowel gas. Spleen: Spleen is normal in size and homogeneous in echotexture. Kidneys: Kidneys are normal in size and echotexture. Right kidney measures 10.4 cm long; left kidney measures 9.5 cm long. No hydronephrosis or nephrolithiasis. Ill-defined lobulated hyperechoic area involving anterior cortex of upper to midpole left kidney and show mild internal vascularity. Aorta: Visualized aorta is normal in caliber at less than 3 cm. Iliacs: Proximal common iliac arteries are normal in caliber at less than 2.5 cm. IVC: Intrahepatic inferior vena cava is patent. Miscellaneous: No free abdominal fluid. IMPRESSION: 1. Ill-defined hyperechoic area involving left kidney as above and may be related to patient's known recent renal infection. Clinical correlation and follow-up is recommended. No obstructing stones or hydronephrosis. 2. Limited evaluation of common bile duct and pancreas due to overlying bowel gas. 3. Hepatic steatosis, no discrete hepatic lesion. 4. Cholelithiasis without sonographic evidence of acute cholecystitis. Dictated by: Sergey Werner M.D. on 08/11/2025 at 14:38 Approved by: Sergey Werner M.D. on 08/11/2025 at 14:49
[2025-08-11 13:26] LABS: Add Manual Diff / Slide Review NO; Hematocrit 43.1 % (36-46); Hemoglobin 15.2 g/dL (12.0-16.0); Lymphocytes Absolute Auto 2800 /uL (1100-4500); Mean Corpuscular HGB Conc 35.3 % (30-36); Mean Corpuscular Hemoglobin 32.0 PG (26-34); Mean Corpuscular Volume 90.8 fL (80-100); Platelet Count 434 X10^3/uL (150-400)
[2025-08-11 13:30] LABS: Alanine Aminotransferase 28 IU/L (<35); Albumin 4.6 g/dL (3.5-5.0); Albumin Globulin Ratio 1.2 (1.0-2.8); Alkaline Phosphatase 100 U/L (38-126); Blood Urea Nitrogen 9 mg/dL (7-17); Calcium 9.1 mg/dL (8.4-10.2); Carbon Dioxide 19 mmol/L (22-32); Chloride 108 mmol/L (98-107); Estimated Glomerular Filt Rate > 60 mL/min (>60); Globulin 3.7 g/dL (1.7-4.1); Glucose 88 mg/dL (70-99); HEMOLYSIS 39 (0-50); Lipase 95 U/L (23-300); Potassium 4.0 mmol/L (3.4-5.1); Sodium 139 mmol/L (137-145); Total Protein 8.3 g/dL (6.3-8.2)
[2025-08-11] MEDS: KETOROLAC 30 MG/ML VIAL 15 MG IV (14:51)
[2025-08-11 15:02] LABS: HCG Quantitative /Beta subunit < 2.39 mIU/mL
[2025-08-11 15:20] VITALS: BP 97/60; PULSE 63; RESP 16; TEMP 36.6; O2SAT 100
[2025-08-11 17:46] VITALS: BP 112/56; PULSE 76; RESP 16; TEMP 36.5; O2SAT 99
--- NOTE | 2025-08-11 18:52 | ED_ITS ---
HPI - Abdominal Pain General Chief Complaint: Urogenital-Female Stated Complaint: Kidney infection not getting better Time Seen by Provider: 08/11/25 13:17 Source: patient Mode of arrival: Ambulatory History of Present Illness HPI narrative: 34-year-old female with recent ED evaluation for right-sided abdominal pain with clinical concern initially for appendicitis, CT scan abdomen done at that time did not confirm appendicitis, was discharged on antibiotics for possible urinary infection. She had some improvement of pain, then increased. No injury or trauma new activities. No fevers or chills. Some nausea without emesis. No loose stools diarrhea. Not having painful or frequent urination. Cough shortness of breath chest pain. Related Data Previous Rx's ?Medication ?Instructions ?Recorded ibuprofen 800 mg tablet 800 mg PO Q8H PRN pain #14 t abs 09/30/24 ondansetron 4 mg disintegrating 4 mg PO Q6H PRN nausea and 09/30/24 tablet vomiting #10 tabs oxycodone 5 mg capsule 5 mg PO Q6H PRN pain #7 caps 09/30/24 sennosides 8.6 mg tablet (Senna 8.6 mg PO BEDTIME #10 tabs 09/30/24 Lax) sulfamethoxazole 800 1 tab PO BID #20 tabs mg-trimethoprim 160 mg tablet (Bactrim DS) Allergies Allergy/AdvReac Type Severity Reaction Status Date / Time No Known Drug Allergies Allergy Verified 08/11/25 11:59 Patient History Medical History (Updated 08/11/25 @ 20:00 by Cam Maloney MD) Ectopic Panic attack Surgical History Status post delivery (06/10/11) Exam Narrative Exam Narrative: GENERAL: Well-developed patient, in mild distress. HEAD: Atraumatic. Normocephalic. EYES: Pupils equal round and reactive. Extraocular motions intact. No scleral icterus. No injection or drainage. ENT: Nose without bleeding, purulent drainage. Throat without erythema, tonsillar hypertrophy or exudate. Airway patent. NECK: Trachea midline. Non tender CARDIOVASCULAR: Regular rate and rhythm without murmurs, gallops, or rubs. RESPIRATORY: Clear to auscultation. Breath sounds equal bilaterally. No wheezes, rales, or rhonchi. GASTROINTESTINAL: tenderness right lower quadrant, as well as epigastrium, nondistended, no guarding rebound tenderness. No rigidity. Bowel tones unremarkable. EXTREMITIES: No edema or joint tenderness. BACK: Nontender without deformity or crepitance. No flank tenderness. NEURO: AOx3. Motor functions grossly nonfocal. SKIN: No rash or erythema of visible areas Initial Vital Signs Initial Vital Signs: Vital Signs Temperature 98.0 F 08/11/25 11:59 Pulse Rate 91 H 08/11/25 11:59 Respiratory Rate 18 08/11/25 11:59 Blood Pressure 131/83 08/11/25 11:59 Pulse Oximetry 97 08/11/25 11:59 Oxygen Delivery Method Room Air 08/11/25 11:59 Course Orders Ordered: ED Orders 08/11/25 18:55 CT abdomen pelvis w con Stat Discontinued Medications Hydrocodone Bitart/Acetaminophen (Hydrocodone/Acet 5/325 Prepack) 1 bottle MISC DIRECTED ONE Stop: 08/11/25 20:02 Last Admin: 08/11/25 20:11 Dose: 1 bottle Documented By: ERIC Hydromorphone HCl (Hydromorphone Hcl 0.5 Mg/0.5 Ml Syringe) 0.5 mg IV NOW ONE Stop: 08/11/25 18:20 Last Admin: 08/11/25 18:22 Dose: 0.5 mg Documented By: ERIC Hydromorphone HCl (Hydromorphone Hcl 0.5 Mg/0.5 Ml Syringe) 0.5 mg IV NOW ONE Stop: 08/11/25 19:10 Last Admin: 08/11/25 19:53 Dose: 0.5 mg Documented By: KARL Ketorolac Tromethamine (Ketorolac 30 Mg/Ml Vial) 15 mg IV NOW ONE Stop: 08/11/25 13:19 Last Admin: 08/11/25 14:51 Dose: 15 mg Documented By: ERIC Ondansetron HCl (Ondansetron 4 Mg/2 Ml Inj) 4 mg IV NOW PRN PRN Reason: Nausea And Vomiting Last Admin: 08/11/25 12:09 Dose: 4 mg Documented By: CHARLA Ondansetron HCl (Ondansetron 4 Mg Odt) 4 mg PO NOW PRN PRN Reason: Nausea And Vomiting Ondansetron HCl (Ondansetron 4 Mg/2 Ml Inj) 4 mg IV NOW ONE Stop: 08/11/25 18:27 Last Admin: 08/11/25 18:29 Dose: 4 mg Documented By: ERIC Ondansetron HCl (Ondansetron 4 Mg Odt Prepack) 1 bottle MISC DIRECTED ONE Stop: 08/11/25 20:02 Last Admin: 08/11/25 20:11 Dose: 1 bottle Documented By: ERIC Vital Signs Vital signs: Vital Signs - 8 hr 08/11/25 19:58 Temperature 98.4 F Pulse Rate 66 Respiratory Rate 16 Blood Pressure 100/54 L Pulse Oximetry 97 Oxygen Delivery Method Room Air Oxygen Flow Rate 0 MDM - Abdominal Pain Lab Data Attestation: I reviewed the patient's lab results. Lab results narrative: White blood cell count 9700, hemoglobin 15.2, platelets adequate. Glucose normal 88. Normal renal function, electrolytes. Serum CO2 19 slight decreased. Liver functions and lipase normal. Serum hCG negative. Urine dip negative. 08/11/25 12:15 08/11/25 12:15 Labs: Lab Results 08/11/25 08/11/25 Range/Units 12:15 12:25 WBC 9.7 (4.5-11.0) X10^3/uL RBC 4.75 (4.0-5.2) X10^6/uL Hgb 15.2 (12.0-16.0) g/dL Hct 43.1 (36-46) % MCV 90.8 (80-100) fL MCH 32.0 (26-34) PG MCHC 35.3 (30-36) % RDW 13.8 (11.6-14.8) % Plt Count 434 H (150-400) X10^3/uL Neut % (Auto) 59.3 (50-75) % Lymph % (Auto) 29.2 (25-40) % [place] % (Auto) 8.2 (3-14) % Eos % (Auto) 2.5 (2-4) % Baso % (Auto) 0.8 (0-2) % Neut # (Auto) 5800 (3694-5322) /uL Lymph # (Auto) 2800 (7237-1509) /uL [place] # (Auto) 800 (0-900) /uL Eos # (Auto) 200 (0-450) /uL Baso # (Auto) 100 (0-100) /uL Sodium 139 (137-145) mmol/L Potassium 4.0 (3.4-5.1) mmol/L Chloride 108 H (98-107) mmol/L Carbon Dioxide 19 L (22-32) mmol/L BUN 9 (7-17) mg/dL Creatinine 0.85 (0.52-1.04) mg/dL Estimated GFR > 60 (>60) mL/min BUN/Creatinine Ratio 10.6 (6-22) Glucose 88 (70-99) mg/dL Calcium 9.1 (8.4-10.2) mg/dL Total Bilirubin 0.8 (0.2-1.3) mg/dL AST 84 H (14-36) IU/L ALT 28 (<35) IU/L Alkaline Phosphatase 100 (38-126) U/L Total Protein 8.3 H (6.3-8.2) g/dL Albumin 4.6 (3.5-5.0) g/dL Globulin 3.7 (1.7-4.1) g/dL Albumin/Globulin Ratio 1.2 (1.0-2.8) Lipase 95 (23-300) U/L HCG, Quant < 2.39 mIU/mL Urine RBC None seen (0-5/HPF) Urine WBC None seen (0-5/HPF) Ur Squamous Epith Cells None seen (0-5/HPF) Urine Bacteria None seen (None) Ur Culture Indicated? Cult not indicated Vol Urine Centrifuged 10ml (spun) Point of care testing: Point of Care Testing Test Results Negative Urine Dip Bedside Urine Glucose Negative Bedside Urine Bilirubin - Negative Bedside Urine Ketone - Negative Urine Specific Alpha 1.005 Bedside Urine Occult Blood - Negative Bedside Urine pH 6.0 Bedside Urine Protein - Negative Bedside Urine Urobilinogen - Negative Bedside Urine Nitrite - Negative Bedside Urine Leukocytes - Negative Esterase Imaging Data Ultrasound abdomen: Radiologist's Impression: [address] [address] Ultrasound Report Signed Patient: Julieta Ramos MR#: [id number] : 1990 Acct:[id number] Age/Sex: 34 / F Date of Service: 08/11/25 Loc: ED Accession Number: [id number] Procedure: US abdomen complete Ordering Provider: Laurita Sainz D.O. PROCEDURE: US ABDOMEN COMPLETE INDICATIONS: R flank back pain TECHNIQUE: Real-time scanning was performed of the abdominal and retroperitoneal organs, with image documentation. COMPARISON: [facility], CT, CT ABDOMEN PELVIS W CON, 08/06/2025, 0:48. FINDINGS: Liver: Liver is normal in size. Increased liver parenchymal echotexture is seen. No discrete hepatic lesion. Gallbladder: 1.2 x 0.9 cm mobile stone is seen in dependent portion of gallbladder lumen. No gallbladder wall thickening or pericholecystic fluid. No sonographic Ro sign. Biliary ducts: Intrahepatic bile ducts are non-dilated. No gross extrahepatic biliary ductal dilatation. Extrahepatic biliary ducts are obscured by overlying bowel gas. Pancreas: Not well seen due to overlying bowel gas. Spleen: Spleen is normal in size and homogeneous in echotexture. Kidneys: Kidneys are normal in size and echotexture. Right kidney measures 10.4 cm long; left kidney measures 9.5 cm long. No hydronephrosis or nephrolithiasis. Ill-defined lobulated hyperechoic area involving anterior cortex of upper to midpole left kidney and show mild internal vascularity. Aorta: Visualized aorta is normal in caliber at less than 3 cm. Iliacs: Proximal common iliac arteries are normal in caliber at less than 2.5 cm. IVC: Intrahepatic inferior vena cava is patent. Miscellaneous: No free abdominal fluid. IMPRESSION: 1. Ill-defined hyperechoic area involving left kidney as above and may be related to patient's known recent renal infection. Clinical correlation and follow-up is recommended. No obstructing stones or hydronephrosis. 2. Limited evaluation of common bile duct and pancreas due to overlying bowel gas. 3. Hepatic steatosis, no discrete hepatic lesion. 4. Cholelithiasis without sonographic evidence of acute cholecystitis. Dictated by: Sergey Werner M.D. on 08/11/2025 at 14:38 Approved by: Sergey Werner M.D. on 08/11/2025 at 14:49 Ultrasound pelvis: Radiologist's Impression: [address] [address] Ultrasound Report Signed Patient: Julieta Ramos MR#: [id number] : 1990 Acct:[id number] Age/Sex: 34 / F Date of Service: 08/11/25 Loc: ED Accession Number: [id number] Procedure: US pelvic complete Ordering Provider: Laurita Sainz D.O. PROCEDURE: US PELVIC COMPLETE INDICATIONS: R flank back pain TECHNIQUE: Real-time scanning was performed of the pelvic organs, with image documentation. Additional endovaginal scanning was necessary due to incomplete visualization of the adnexal and endometrial structures by transabdominal scanning. Color flow and spectral Doppler evaluation of the ovaries was performed in the setting of pelvic pain. COMPARISON: [facility], CT, CT ABDOMEN PELVIS W CON, 08/06/2025, 0:48. [facility], US, US PELVIC COMPLETE, 09/29/2024, 21:55. FINDINGS: Uterus: Uterus is anteverted and normal in size at 6.4 x 5.5 x 3.5 cm. The myometrium is homogeneous. The endometrium measures 8.2 mm combined thickness. Ovaries: The right ovary measures 1.7 x 3.7 x 2.1 cm, with a calculated ovarian volume of 6.9 cc. The left ovary measures 3.2 x 2.4 x 1.4 cm, with a calculated ovarian volume of 5.4 cc. Normal arterial and venous Doppler flow is demonstrated to each ovary. A hyperechoic structure with peripheral vascularity is seen in the right ovary measuring 1.6 x 1.7 x 1.1 cm. Other: No pathologic free abdominal or pelvic fluid. IMPRESSION: 1. No sonographic signs of ovarian torsion. 2. Heterogeneous mildly hyperechoic 1.7 cm lesion in the right ovary with peripheral vascularity is nonspecific, possibly representing corpus luteal cyst although ovarian ectopic is not entirely excluded in the setting of unknown status. No intrauterine . Recommend correlation with clinical findings and beta HCG measurements. Follow-up ultrasound could be performed if indicated clinically. Approved by: John Navarrete M.D. on 08/11/2025 at 15:24 CT scan - abdomen/pelvis: Radiologist's Impression: [address] [address] [address] Scan Report Signed Patient: Julieta Ramos MR#: [id number] : 1990 Acct:[id number] Age/Sex: 34 / F Date of Service: 08/11/25 Loc: ED Accession Number: [id number] Procedure: CT abdomen pelvis w con Ordering Provider: Cam Maloney MD PROCEDURE: CT ABDOMEN PELVIS W CON INDICATIONS: R sided abominal pain, wants rpt CT TECHNIQUE: After the administration of intravenous contrast, axial sections acquired from the lung bases to the pubic symphysis. Coronal and sagittal reformats were performed. For radiation dose reduction, the following was used: automated exposure control, adjustment of mA and/or kV according to patient size. COMPARISON: [facility], CT, CT ABDOMEN PELVIS W CON, 08/06/2025, 0:48. FINDINGS: Image quality: Diagnostic. Lower Chest: No significant findings. ABDOMEN: Liver: No solid mass. Gallbladder: No radiopaque gallstones or wall thickening. Biliary ducts: No biliary dilation. Pancreas: No ductal dilation. Spleen: Size is within normal limits. Adrenal Glands: No adrenal nodules. Kidneys and Ureters: No hydronephrosis. No solid mass. No complex renal cystic lesion which requires follow up. Stomach and Bowel: Normal colonic caliber, without significant wall thickening. No evidence of acute appendicitis. No abscess collection. Peritoneum: No abnormal intraperitoneal fluid. No free air. Ventral Wall: No significant ventral hernia. Abdominal Nodes: No retroperitoneal or mesenteric adenopathy by size criteria. Tiny mesenteric nodes are seen in right lower quadrant and measures up to 4 mm in size. Series 2, image 76. Vessels: Aorta and inferior vena cava are normal in size. PELVIS: Pelvic Organs: Possible involuting corpus luteum in right ovary measures 1.7 x 1 cm in size. This is seen on series 2, image 111. Bladder: No bladder wall thickening, accounting for underdistention. Pelvic Nodes: No enlarged lymph nodes. Miscellaneous: No inguinal hernias are seen. Bones: No aggressive osseous abnormality. IMPRESSION: 1. Possible involuting corpus luteum in right ovary measures 1.7 x 1 cm in size which is consistent with pelvic ultrasound finding. 2. No bowel obstruction or abnormal bowel wall thickening. No evidence of acute appendicitis. No free fluid or free air. 3. A few tiny lymph nodes seen in right lower quadrant mesentery which can be seen associated with clinical diagnosis of mesenteric adenitis. Dictated by: Sergey Werner M.D. on 08/11/2025 at 19:27 Approved by: Sergey Werner M.D. on 08/11/2025 at 19:30 [facility] Narrative Medical decision making narrative: 34-year-old female recently seen for right-sided abdominal pain had CT scan abdomen and pelvis prior visit here not confirming suspected appendicitis, was felt to have possible urine infection at that time, started oral antibiotics, seemed to be improving but then worsening again. Afebrile on triage, sirs screen negative. Lab data: White blood cell count 9700, hemoglobin 15.2, platelets adequate. Glucose normal 88. Normal renal function, electrolytes. Serum CO2 19 slight decreased. Liver functions and lipase normal. Serum hCG negative. Urine dip negative. Ultrasound abdomen. Showed left renal hypoechoic area, limited biliary tree assessment due to overlying bowel gas, fatty liver changes noted, cholelithiasis without cholecystitis changes. See radiology report Ultrasound pelvis. No ovarian torsion. Heterogeneous mildly hyperechoic 1.7 cm lesion right ovarian with vascularity nonspecific, possible corpus luteum cyst. See radiology report. Patient is still having pain, we would like pain medication, IV Dilaudid ordered. Patient we would like repeat imaging when we discussed further options. CT abdomen pelvis ordered. CT abdomen and pelvis. IMPRESSION: 1. Possible involuting corpus luteum in right ovary measures 1.7 x 1 cm in size which is consistent with pelvic ultrasound finding. 2. No bowel obstruction or abnormal bowel wall thickening. No evidence of acute appendicitis. No free fluid or free air. 3. A few tiny lymph nodes seen in right lower quadrant mesentery which can be seen associated with clinical diagnosis of mesenteric adenitis. See radiology report. Copy reports given to patient with discussion at bedside with she/family. Cholelithiasis without cholecystitis noted. No ovarian torsion. Possible corpus luteum cyst. Might have right lower quadrant discomfort from mesenteric adenitis noted in the right lower quadrant. Anti-inflammatory pain medications. Home pack of pain medications. Advised to recheck this Friday if symptoms persist. Return precautions discussed. Discharged home with family. Discharge Plan Departure Patient Disposition: Home Clinical Impression: Mesenteric adenitis, Corpus luteum cyst of right ovary, Cholelithiasis Instructions: DI for Ovarian Cyst, DI for Mesenteric Adenitis-Adult Activity Restrictions/Additional Instructions: Ongoing right-sided abdominal discomfort, previous visit for CT scanning abdomen and pelvis showed no appendicitis, treated with oral antibiotics for possible urine infection. Still having pain. Initial study here ordered was ultrasound of the abdomen and pelvis. Ultrasound studies had some concern about a lesion in the left kidney, possibly consistent with a recently resolving urine infection. Ultrasound also mentioned mobile nonobstructing single gallstone, without acute inflammatory changes of the gallbladder. Ultrasound pelvis components showed suspected small involuting cyst, negative test, consistent with possible corpus luteum involuting ovarian cyst. Good blood flow to both ovaries, no evidence ovarian torsion as cause of your discomfort at this time. There was no pelvic fluid suggestive of ongoing bleeding or fluid accumulation. Fatty liver changes also noted. You had persisting pain despite IV pain medications. CT abdomen and pelvis repeat study, showed mesenteric adenitis changes, in the right lower quadrant that might be the cause of your discomfort. Mesenteric adenitis might be this ongoing cause of your discomfort. Appendicitis was not mentioned again on this report. Urinalysis today looked reassuring, likely resolution of urine infection if that was indeed present from prior visit. We discussed home pack pain medication and antinausea medications, dispensed. Check symptoms Friday with your regular doctor if symptoms are persisting. Return to this/nearest emergency department for any change worsening symptoms or any concerns prior. Prescriptions: No Action oxycodone 5 mg capsule 5 mg PO Q6H PRN (Reason: pain) Qty: 7 0RF ibuprofen 800 mg tablet 800 mg PO Q8H PRN (Reason: pain) Qty: 14 0RF sennosides [Senna Lax] 8.6 mg tablet 8.6 mg PO BEDTIME Qty: 10 0RF ondansetron 4 mg tablet,disintegrating 4 mg PO Q6H PRN (Reason: nausea and vomiting) Qty: 10 0RF sulfamethoxazole-trimethoprim [Bactrim DS] 800-160 mg tablet 1 tab PO BID Qty: 20 0RF Referrals: Mar Chávez PA-C [Primary Care Provider, Medical] Stand Alone Forms: Patient Portal/API
--- NOTE | 2025-08-11 18:55 | DI.CT.S_ITS ---
PROCEDURE: CT ABDOMEN PELVIS W CON INDICATIONS: R sided abominal pain, wants rpt CT TECHNIQUE: After the administration of intravenous contrast, axial sections acquired from the lung bases to the pubic symphysis. Coronal and sagittal reformats were performed. For radiation dose reduction, the following was used: automated exposure control, adjustment of mA and/or kV according to patient size. COMPARISON: [facility], CT, CT ABDOMEN PELVIS W CON, 08/06/2025, 0:48. FINDINGS: Image quality: Diagnostic. Lower Chest: No significant findings. ABDOMEN: Liver: No solid mass. Gallbladder: No radiopaque gallstones or wall thickening. Biliary ducts: No biliary dilation. Pancreas: No ductal dilation. Spleen: Size is within normal limits. Adrenal Glands: No adrenal nodules. Kidneys and Ureters: No hydronephrosis. No solid mass. No complex renal cystic lesion which requires follow up. Stomach and Bowel: Normal colonic caliber, without significant wall thickening. No evidence of acute appendicitis. No abscess collection. Peritoneum: No abnormal intraperitoneal fluid. No free air. Ventral Wall: No significant ventral hernia. Abdominal Nodes: No retroperitoneal or mesenteric adenopathy by size criteria. Tiny mesenteric nodes are seen in right lower quadrant and measures up to 4 mm in size. Series 2, image 76. Vessels: Aorta and inferior vena cava are normal in size. PELVIS: Pelvic Organs: Possible involuting corpus luteum in right ovary measures 1.7 x 1 cm in size. This is seen on series 2, image 111. Bladder: No bladder wall thickening, accounting for underdistention. Pelvic Nodes: No enlarged lymph nodes. Miscellaneous: No inguinal hernias are seen. Bones: No aggressive osseous abnormality. IMPRESSION: 1. Possible involuting corpus luteum in right ovary measures 1.7 x 1 cm in size which is consistent with pelvic ultrasound finding. 2. No bowel obstruction or abnormal bowel wall thickening. No evidence of acute appendicitis. No free fluid or free air. 3. A few tiny lymph nodes seen in right lower quadrant mesentery which can be seen associated with clinical diagnosis of mesenteric adenitis. Dictated by: Sergey Werner M.D. on 08/11/2025 at 19:27 Approved by: Sergey Werner M.D. on 08/11/2025 at 19:30
[2025-08-11 19:58] VITALS: BP 100/54; PULSE 66; RESP 16; TEMP 36.9; O2SAT 97
[2025-08-11] MEDS: ONDANSETRON 4 MG ODT PREPACK 1 BOTTLE MISC (20:11)
== END 2025-08-11 20:15 | disposition home or self-care (01) ==
PROVIDERS: Emergency Medicine; Emergency Provider Emergency Medicine; PCP Physician Assistant
DX: I88.0 Nonspecific mesenteric lymphadenitis (principal); N83.11 Corpus luteum cyst of right ovary; K80.20 Calculus of gallbladder without cholecystitis without obstruction
CPT/HCPCS: 36415; 74177; 76700; 76830; 76856; 80053; 81003; 81015; 81025; 83690; 84702; 85025; 87086; 93975; 96374; 96375; 96376; 99284; J1171; J1885; J2405; Q9967